=== PATIENT | female | born 1950 | race Caucasian/White ===

== ENCOUNTER 2018-01-21 12:20 | Inpatient (IN) | payer MEDICARE, MEDICAID ==
[2018-01-21] MEDS ORDERED: Furosemide 40 MG/4 ML VIAL IVPUSH SCH ×2 (13:15→14:30)
[2018-01-21] MEDS: Furosemide 40 MG/4 ML VIAL IVPUSH SCH (15:52)
[2018-01-21] MEDS ORDERED: Loperamide 2 MG Cap PO PRN (19:15)
[2018-01-21] MEDS ORDERED: guaiFENesin 100 MG/5 ML Soln 5 ML UD Cup PO PRN (19:15)
[2018-01-21] MEDS ORDERED: Magnesium Hydroxide 400 MG/5 ML Susp 30 ML Cup PO PRN (19:15)
[2018-01-21] MEDS ORDERED: Aluminum Hydroxide/Magnesium Hydroxide/Simethicone Susp 30 ML Cup PO PRN (19:34)
[2018-01-21] MEDS: Carboxymethylcellulose Sodium 0.5% Ophth Soln 15 ML Bottle EYEBOTH SCH (20:08)
[2018-01-21] MEDS: Budesonide 0.5 MG/2 ML Neb Susp INH SCH (20:10)
[2018-01-21] MEDS: Mineral Oil/Petrolatum Ophth Oint 3.5 GM Tube EYERT SCH (20:21)
[2018-01-21] MEDS: Timolol Maleate 0.5% Ophth Soln 5 ML Bottle EYELF SCH (20:21)
[2018-01-21] MEDS: Simvastatin 10 MG Tab PO SCH (20:25)
[2018-01-21] MEDS: Calcium Citrate/Vitamin D3 315 MG-250 Unit Tab PO SCH (20:25)
[2018-01-21] MEDS: Latanoprost 0.005% Ophth Soln 2.5 ML Bottle EYELF SCH (20:29)
[2018-01-21] MEDS: Albuterol/Ipratropium 3.0-0.5 MG/3 ML Neb Soln INH SCH (20:30)
[2018-01-21] MEDS: Dorzolamide 2% Ophth Soln 10 ML Bottle EYELF SCH (20:42)
[2018-01-21] MEDS ORDERED: Calcium Citrate/Vitamin D3 315 MG-250 Unit Tab PO SCH (21:00)
[2018-01-22] MEDS: Furosemide 40 MG/4 ML VIAL IVPUSH SCH ×3 (00:50→20:12)
[2018-01-22] MEDS: Acetaminophen 500 MG Tab PO PRN (01:24)
[2018-01-22] MEDS ORDERED: Budesonide 0.5 MG/2 ML Neb Susp INH SCH (06:00)
[2018-01-22] MEDS: Albuterol/Ipratropium 3.0-0.5 MG/3 ML Neb Soln INH SCH ×3 (06:12→19:58)
[2018-01-22] MEDS: Primidone 250 MG Tab PO SCH ×3 (06:24→16:59)
[2018-01-22 08:19] LABS: CHLORIDE,CL 97 mmol/L (98-115); SODIUM,NA 147 mmol/L (136-145)
[2018-01-22] MEDS: Potassium Chloride 10 MEQ Tab.ER PO SCH (08:27)
[2018-01-22] MEDS: Budesonide 0.5 MG/2 ML Neb Susp INH SCH ×2 (08:27→20:26)
[2018-01-22] MEDS: Cholecalciferol (Vitamin D3) 1,000 Unit Tab PO SCH (08:27)
[2018-01-22] MEDS: Fluticasone Propionate Nasal Spray 16 GM Bottle NASBOTH SCH (08:27)
[2018-01-22] MEDS: Calcium Citrate/Vitamin D3 315 MG-250 Unit Tab PO SCH ×2 (08:27→20:11)
[2018-01-22] MEDS: Carboxymethylcellulose Sodium 0.5% Ophth Soln 15 ML Bottle EYEBOTH SCH ×2 (08:28→19:59)
[2018-01-22] MEDS: Timolol Maleate 0.5% Ophth Soln 5 ML Bottle EYELF SCH ×2 (08:28→20:10)
[2018-01-22] MEDS: Dorzolamide 2% Ophth Soln 10 ML Bottle EYELF SCH ×2 (08:29→20:38)
[2018-01-22] MEDS: Enoxaparin 40 MG/0.4 ML Syringe SUBCUT SCH (12:08)
[2018-01-22] MEDS: Nystatin Topical Powder 15 GM Bottle TOP SCH ×2 (13:55→20:12)
--- NOTE | 2018-01-22 14:38 | PN ---
01/22/2018 PATIENT NAME: OKSANA CHRISTIANSEN FEBRUARY SUBJECTIVE: This is a 67-year-old female patient who was admitted to the hospital from the clinic yesterday with concerns about exacerbation of CHF. The patient had presented to the clinic with shortness of breath and weight gain. The patient's recent brain natriuretic peptide was elevated at 430. Her Lasix had been increased recently to 40 mg twice daily. She continued to have increased shortness of breath, wheezing, weakness, and low oxygen saturations. The patient was recently hospitalized in [facility] back on December 26 through the with community-acquired pneumonia, COPD exacerbation and acute respiratory failure. She was treated with Rocephin, azithromycin, and prednisone. She improved and was returned to the [facility]. The patient today states that her breathing is a little better. She feels a little better. She is still tired. Her breathing is somewhat better. She denies any cough, fever, chills. OBJECTIVE: VITAL SIGNS: Patient's vital signs today, her weight today is 210 pounds, temperature is 98.5, pulse rate is 100, blood pressure is 115/69, respiratory rate is 28, oxygen saturation 91% on 2 L nasal cannula. GENERAL: This is an elderly white obese female in no acute distress. CARDIAC: Heart tones are distant. The patient has probably 5+ pitting edema to her feet and lower extremities. Fingers are also puffy with edema. RESPIRATORY: Lung sounds are clear in upper lobes, diminished at bilateral bases. ABDOMEN: Soft, obese, nontender, nondistended. Bowel sounds present x4. LABORATORY DATA: The patient's lab work that was obtained today, basic metabolic panel shows sodium to be slightly high at 147, chloride slightly low at 97, her bicarb is elevated at 39.4. Troponin was negative. The patient's brain natriuretic peptide that was obtained in the clinic prior to admission was 1190. The patient's EKG that was obtained upon admission showed sinus tachycardia with some premature supraventricular complexes at a rate of 112 beats per minute. IMPRESSION AND PLAN: 1. Exacerbation of congestive heart failure. Plan: We are going to diurese the patient while here in the hospital with Lasix 40 mg IV twice a day. She has a Baez catheter in place. We will continue with accurate I's and Os, daily weights. We will also continue with potassium chloride 10 mEq daily orally. The patient's potassium level today was good at 5.0. We will slowly diurese the patient down. I am expecting probably close to 15 pounds will need to be diuresed just by physical exam alone. 2. Chronic obstructive pulmonary disease. Plan: We will continue with DuoNeb 3 times a day along with Pulmicort nebulizer twice a day. She can have some Robitussin as needed for cough. 3. History of hyperlipidemia. Plan: Continue with Zocor 10 mg daily. 4. Deep venous thrombosis prophylaxis. The patient is bedredden while here. We will try to get her up in the chair, but still she has been in bed sleeping quite a bit. We will start her on some Lovenox 40 mg subcu daily for deep venous thrombosis prophylaxis. 5. History of glaucoma. Plan: Continue with patient's multiple eyedrops for glaucoma. OVERALL PLAN: We are going to try to slowly diurese the patient down. Monitor Is and Os and her weight along with electrolyte balance closely along with respiratory status monitoring. /[id number]/MODL
[2018-01-22] MEDS: Mineral Oil/Petrolatum Ophth Oint 3.5 GM Tube EYERT SCH (20:10)
[2018-01-22] MEDS: Simvastatin 10 MG Tab PO SCH (20:11)
[2018-01-22] MEDS: Latanoprost 0.005% Ophth Soln 2.5 ML Bottle EYELF SCH (20:25)
[2018-01-23] MEDS: Albuterol/Ipratropium 3.0-0.5 MG/3 ML Neb Soln INH SCH ×3 (06:18→18:09)
[2018-01-23] MEDS: Primidone 50 MG Tab PO SCH ×3 (06:30→17:05)
[2018-01-23] MEDS: Budesonide 0.5 MG/2 ML Neb Susp INH SCH ×2 (07:55→20:26)
[2018-01-23] MEDS: Fluticasone Propionate Nasal Spray 16 GM Bottle NASBOTH SCH (08:39)
[2018-01-23] MEDS: Calcium Citrate/Vitamin D3 315 MG-250 Unit Tab PO SCH ×2 (08:39→20:31)
[2018-01-23] MEDS: Furosemide 40 MG/4 ML VIAL IVPUSH SCH ×2 (08:39→20:27)
[2018-01-23] MEDS: Potassium Chloride 10 MEQ Tab.ER PO SCH (08:39)
[2018-01-23] MEDS: Cholecalciferol (Vitamin D3) 1,000 Unit Tab PO SCH (08:40)
[2018-01-23] MEDS: Nystatin Topical Powder 15 GM Bottle TOP SCH ×3 (08:40→20:39)
[2018-01-23] MEDS: Carboxymethylcellulose Sodium 0.5% Ophth Soln 15 ML Bottle EYEBOTH SCH ×2 (08:40→20:30)
[2018-01-23] MEDS: Timolol Maleate 0.5% Ophth Soln 5 ML Bottle EYELF SCH ×2 (08:40→20:25)
[2018-01-23] MEDS: Dorzolamide 2% Ophth Soln 10 ML Bottle EYELF SCH ×2 (08:40→20:35)
[2018-01-23] MEDS: Enoxaparin 40 MG/0.4 ML Syringe SUBCUT SCH (11:54)
--- NOTE | 2018-01-23 13:17 | PN ---
01/23/2018 PATIENT NAME: OKSANA CHRISTIANSEN FEBRUARY SUBJECTIVE: This is a 67-year-old female patient who was seen in the clinic with exacerbation of CHF. The patient was having some shortness of breath and her weight was up quite a bit. She was admitted to the hospital at that time and today, the patient states that she is feeling better. She still sleeps a lot today. She was up in the chair this morning eating breakfast, but she says her breathing is better and she does feel better overall. OBJECTIVE: VITAL SIGNS: Today, the patient's pulse is 105, temperature is 98.6. Her weight today on the bed scale is 211 pounds. Blood pressure is 121/73, respiratory rate is 24, oxygen saturation on 3L nasal cannula is 91% to 94%. GENERAL: This is an elderly white female in no acute distress. She is obese. Seems to sleep a lot. She has no complaints. HEART: Tones are distant. Regular rate and rhythm. No murmurs identified. LUNGS: Sounds are clear in upper lobes, diminished at bilateral bases. ABDOMEN: Obese. Bowel sounds present x4. EXTREMITIES: The patient does have 4+ pitting edema to her feet and ankles. Edema to her fingers seems little improved today from yesterday. LABORATORY DATA: Lab work that was obtained yesterday showed a sodium slightly elevated at 147. Potassium was good at 5.0. We will repeat lab work tomorrow. IMPRESSION AND PLAN: 1. Exacerbation of congestive heart failure. Plan: We are going to continue diuresing the patient. She did have her Baez removed due to leakage, so we are going to try to keep accurate I's and O's. We will continue with Lasix 40 mg IV twice a day. The day before she was minus 625 mL on her I's and O's. Without a Baez catheter in place, we will have to do it more clinically by her weight. Her weight is 211 today on the bed scale. We will have to monitor daily weights closely. We will continue her on potassium chloride 10 mEq daily. Her potassium level yesterday was within normal range at 5.0. We will repeat a basic metabolic panel tomorrow morning. 2. Chronic obstructive pulmonary disease. Plan: Continue with DuoNeb 3 times a day along with Pulmicort nebulizer twice a day. She can have some Robitussin cough syrup as needed for cough. 3. History of hyperlipidemia. Plan: Continue with Zocor 10 mg daily. 4. DVT prophylaxis. The patient is not very active at all. She does get up to the chair now. They got her up today for breakfast. Otherwise, she sleeps most of the day, so I did start her on some Lovenox 40 mg subcu daily for DVT prophylaxis. 5. History of glaucoma. Plan: Continue with multiple eye drops per Optometry for her glaucoma. Overall plan: we are slowly diuresing the patient. We will keep an eye on her weight closely. We will try to do our best on accurate I's and Os. Her electrolytes seeming to be doing well. We will repeat a basic metabolic panel tomorrow morning. We will continue with IV Lasix therapy 40 mg twice a day. /[id number]/MODL MTDD
[2018-01-23] MEDS: Simvastatin 10 MG Tab PO SCH (20:32)
[2018-01-23] MEDS: Latanoprost 0.005% Ophth Soln 2.5 ML Bottle EYELF SCH (20:40)
[2018-01-23] MEDS: Mineral Oil/Petrolatum Ophth Oint 3.5 GM Tube EYERT SCH (20:47)
[2018-01-24] MEDS: Albuterol/Ipratropium 3.0-0.5 MG/3 ML Neb Soln INH SCH ×3 (06:16→20:10)
[2018-01-24] MEDS: Furosemide 40 MG/4 ML VIAL IVPUSH SCH ×2 (06:50→09:32)
[2018-01-24] MEDS: Primidone 50 MG Tab PO SCH ×4 (07:16→17:11)
[2018-01-24] MEDS: Budesonide 0.5 MG/2 ML Neb Susp INH SCH ×2 (07:24→20:40)
[2018-01-24 08:06] LABS: CHLORIDE,CL 97 mmol/L (98-115); SODIUM,NA 139 mmol/L (136-145)
[2018-01-24] MEDS ORDERED: methylPREDNISolone Sodium Succinate 125 MG/2 ML SDV IVPUSH ONE (08:25)
[2018-01-24] MEDS: Cholecalciferol (Vitamin D3) 1,000 Unit Tab PO SCH (09:34)
[2018-01-24] MEDS: Fluticasone Propionate Nasal Spray 16 GM Bottle NASBOTH SCH (09:40)
[2018-01-24] MEDS: Carboxymethylcellulose Sodium 0.5% Ophth Soln 15 ML Bottle EYEBOTH SCH ×2 (09:41→20:29)
[2018-01-24] MEDS: Calcium Citrate/Vitamin D3 315 MG-250 Unit Tab PO SCH ×2 (09:41→20:26)
[2018-01-24] MEDS: Timolol Maleate 0.5% Ophth Soln 5 ML Bottle EYELF SCH ×2 (09:46→20:30)
[2018-01-24] MEDS: Nystatin Topical Powder 15 GM Bottle TOP SCH ×3 (09:46→20:34)
[2018-01-24] MEDS: Dorzolamide 2% Ophth Soln 10 ML Bottle EYELF SCH ×2 (09:50→20:29)
[2018-01-24] MEDS: Potassium Chloride 10 MEQ Tab.ER PO SCH (09:50)
[2018-01-24 10:45] LABS: O2 DELIVERY DEVICE NASAL CANNULA; O2 FLOW RATE 6 L/min
[2018-01-24 10:46] LABS: PCO2 ARTERIAL 89 mmHG (35-45); PO2 ARTERIAL 118 mmHG (80-105)
[2018-01-24 10:47] LABS: BASE EXCESS ARTERIAL 21 mmol/L (-2-3); BICARBONATE,ARTERIAL 46.6 mmol/L (22-26); O2 SATURATION ARTERIAL 98 % (95-98)
[2018-01-24] MEDS: Bumetanide 1 MG/4 ML MDV IVPUSH SCH ×2 (10:51→20:25)
[2018-01-24] MEDS ORDERED: Levofloxacin/Dextrose 5%-Water 100 ML IV SCH (11:30)
[2018-01-24] MEDS: Enoxaparin 40 MG/0.4 ML Syringe SUBCUT SCH (11:43)
--- NOTE | 2018-01-24 12:21 | PN ---
01/24/2018 PATIENT NAME: OKSANA CHRISTIANSEN FEBRUARY SUBJECTIVE: This is a 67-year-old female patient who is a resident at the [facility], here in [place]. She was seen in clinic on Wednesday with concerns about shortness of breath and weight gain. The patient's brain-natriuretic peptide that was obtained in clinic was elevated at 1190. She was admitted to the hospital at that time with exacerbation of CHF. She was put on Lasix 40 mg IV twice a day with accurate I and O and daily weights. The patient was doing well until about 06:00 a.m. this morning. Nursing staff had gone into the patient's room to turn her. They had turned her and they noticed that once they turned her, she became more short of breath, diaphoretic and just did not feel well. She complained of some shortness of breath. On exam today, when I went in, the patient was pale, diaphoretic. She states she felt more short of breath. She has some audible wheezing. She continues to have 4+ pitting edema to her lower extremities. She denied any chest pain or cough. She just stated that she was more short of breath. I gave her 80 mg of Solu-Medrol IV push. She stated that after she got the Solu-Medrol, her breathing did improve. I no longer could hear audible wheezing, her lung sounds had improved slightly. OBJECTIVE: VITAL SIGNS: Today, the patient's weight remains the same. She still weighs 211 pounds per the bed scale. Her temperature is 97.6, pulse is 112 regular, blood pressure is 132/85, respiratory rate is 28, oxygen saturations are anywhere from 86% to 93% on 3L nasal cannula. GENERAL: This is an elderly white female, obese, who is somewhat diaphoretic. She had some audible wheezing until the Solu-Medrol was given. ABDOMEN: Obese, nontender, nondistended. Bowel sounds present x4. LUNGS: Sounds had wheezing throughout lung tellez. HEART: Tones are distant, tachycardic, but regular rate and rhythm otherwise. EXTREMITIES: She does have 4+ pedal edema to her feet and lower extremities. This is improved from previous assessment. Her fingers are less swollen than previous assessment also. LABORATORY DATA: The patient's lab work today, I did obtain a CBC which shows white count within normal range at 8.9, hemoglobin stable at 13.5, ANC is slightly elevated at 77.7. Basic metabolic panel this morning is unremarkable except for her carbon dioxide level is high at 40.0, BUN at 30, creatinine 0.56, GFR is greater than 60. I added a CK-MB, which is negative at 0.50. Troponin is negative at less than 0.04. I repeated brain-natriuretic peptide which is elevated at 1430. EKG that I had obtained this morning shows sinus tachycardia at 110 beats per minute. Chest x-ray shows a new significant infiltrate or mass at the right lung base. IMPRESSION AND PLAN: 1. Exacerbation of congestive heart failure. Plan: The patient's brain- natriuretic peptide is actually elevated from admission today at 1430. We did reinsert Baez catheter again this morning. We are going to try to continue with accurate I's and O's. I am going to continue with Lasix 40 mg IV twice a day. I am going to add Bumex 1 mg IV twice a day. We will continue with daily weights. Also, continue with potassium chloride 10 mEq daily and continue to monitor potassium levels. On assessment she does appear somewhat improved as her edema. 2. Chronic obstructive pulmonary disease/wheezing/ new infiltrate to right lung base: We will continue with DuoNebs three times a day along with her Pulmicort nebulizer twice a day. ABGs show PCO2 at 89, PO2 118, Ph 7.33, Bicarb 49. Also, please see CXR report. I did give the patient Solu-Medrol 80 mg IV this morning, which did improve her wheezing and respiratory status. She complained of less shortness of breath. I am going to put her on Solu-Medrol 40 mg IV twice a day starting tomorrow morning. She can have some Robitussin cough syrup as needed for cough. Start patient on IV antibiotic therapy, Levaquin 500 mg daily and Vancomycin-pharmacy to dose , for new infiltrate. 3. History of hyperlipidemia. Plan: Continue with Zocor 10 mg daily. 4. DVT prophylaxis. I put the patient on Lovenox 40 mg subcutaneously daily for DVT prophylaxis. 5. History of glaucoma. Plan: Continue with multiple eye drops per Optometry for glaucoma. OVERALL PLAN: The patient's brain-natriuretic peptide is actually elevated from admission today at 1430. I did order an EKG this morning with the patient's increased shortness of breath that showed sinus tach at 110 beats per minute. Troponin was negative along with CK-MB was negative. I did start the patient on IV Solu-Medrol, which seemed to improve her respiratory status. ABGs were also obtained. The patient's kidney function remains to be well. I am going to add some extra diuretics of Bumex 1 mg IV twice a day. We have restarted Baez catheter, we will try to keep an accurate I's and O's along with daily weights to monitor the patient's fluid and electrolyte balance closely. At this point, I do believe the patient's shortness of breath was related to COPD, possible hospital acquired pneumonia. IV antibiotic therapy will be initiated for new infiltrate. Will obtain CT of the chest today. /[id number]/MODL MTDD
[2018-01-24] MEDS ORDERED: Levofloxacin/Dextrose 5%-Water 50 ML IV SCH (12:30)
[2018-01-24] MEDS ORDERED: Iopamidol 612 MG/ML 75 ML Bottle IV ONE (15:57)
[2018-01-24] MEDS ORDERED: Sodium Chloride 0.9% 50 ML IV SCH (16:00)
[2018-01-24] MEDS ORDERED: Rivaroxaban 10 MG Tab PO SCH ×2 (16:45→17:00)
[2018-01-24] MEDS ORDERED: Furosemide 40 MG/4 ML VIAL IVPUSH SCH (17:00)
[2018-01-24] MEDS ORDERED: Enoxaparin 60 MG/0.6 ML Syringe SUBCUT ONE (17:02)
[2018-01-24] MEDS: Simvastatin 10 MG Tab PO SCH (20:26)
[2018-01-24] MEDS: Mineral Oil/Petrolatum Ophth Oint 3.5 GM Tube EYERT SCH (20:29)
[2018-01-24] MEDS: Latanoprost 0.005% Ophth Soln 2.5 ML Bottle EYELF SCH (20:30)
[2018-01-25] MEDS: Acetaminophen 500 MG Tab PO PRN (03:19)
[2018-01-25] MEDS: Albuterol/Ipratropium 3.0-0.5 MG/3 ML Neb Soln INH SCH ×3 (06:08→18:17)
[2018-01-25] MEDS: Primidone 50 MG Tab PO SCH ×3 (06:43→17:28)
[2018-01-25] MEDS: Budesonide 0.5 MG/2 ML Neb Susp INH SCH ×2 (07:36→20:05)
[2018-01-25] MEDS: Calcium Citrate/Vitamin D3 315 MG-250 Unit Tab PO SCH ×2 (08:28→20:13)
[2018-01-25] MEDS: Potassium Chloride 10 MEQ Tab.ER PO SCH (08:29)
[2018-01-25] MEDS: Cholecalciferol (Vitamin D3) 1,000 Unit Tab PO SCH (08:29)
[2018-01-25] MEDS: Carboxymethylcellulose Sodium 0.5% Ophth Soln 15 ML Bottle EYEBOTH SCH ×2 (08:30→20:25)
[2018-01-25] MEDS: Timolol Maleate 0.5% Ophth Soln 5 ML Bottle EYELF SCH ×2 (08:31→20:00)
[2018-01-25] MEDS: Dorzolamide 2% Ophth Soln 10 ML Bottle EYELF SCH ×2 (08:32→20:05)
[2018-01-25] MEDS: Nystatin Topical Powder 15 GM Bottle TOP SCH ×3 (08:38→22:00)
[2018-01-25] MEDS: Bumetanide 1 MG/4 ML MDV IVPUSH SCH ×3 (08:38→20:01)
[2018-01-25] MEDS: Fluticasone Propionate Nasal Spray 16 GM Bottle NASBOTH SCH (08:38)
[2018-01-25] MEDS: methylPREDNISolone Sodium Succinate 125 MG/2 ML SDV IVPUSH SCH ×2 (11:25→23:00)
[2018-01-25] MEDS: Enoxaparin 100 MG/1 ML Syringe SUBCUT SCH ×2 (14:51→23:02)
--- NOTE | 2018-01-25 15:32 | PN ---
01/25/2018 PATIENT NAME: OKSANA CHRISTIANSEN FEBRUARY Update, the patient did have a CT chest yesterday, which does demonstrate a moderate pulmonary emboli. Yesterday, the patient was having significant more shortness of breath, diaphoresis, overall not feeling well. Shortly, after they had turned the patient, she did have some audible wheezing, some 4+ pitting edema to her lower extremities, however, she did not have any chest pains or cough. HISTORY: The patient is 67. She is a resident of a local senior living, [facility]. She had been admitted for few days now. She had seen in the clinic approximately 4 days ago with concerns of some shortness of breath, some weight gain. She did have an initial BNP of approximately 1200. She was admitted due to exacerbation of CHF, put on diuretics of Lasix 40 mg b.i.d. She had been diuresing and doing well until about yesterday morning when the staff nurses had noticed that she had become more shortness of breath and diaphoretic upon initial turning. Chest CT does show moderate pleural effusions, right greater than left; however, pulmonary embolism mostly seen on the left, does have some right hilar fullness. EKG yesterday morning does show sinus tach with an inferior lead, T-wave inversion along with V1, V3, V4, V5 and V6 along with reciprocal leads. Lovenox was given. Repeat dose last night. PHYSICAL EXAMINATION: VITAL SIGNS: This morning, the patient is slightly tachycardia about 100 to 106, O2 saturations of 94%. She is on 3 L. Temperature is 97.3. RESPIRATORY: Lung sounds, she does have some anterior late expiratory wheezing. CARDIOVASCULAR: Regular rate and rhythm. No JVD. EXTREMITIES: Lower extremities, generalized edema, slightly pitting. No calf tenderness. Negative Homans signs bilaterally. No discrepancy in calf size. No palpable cord. No redness or erythema. No pain. LABORATORY DATA: White count 8.9, neutrophilia 78%. ABG, pH 7.33, pCO2 89, pO2 118, bicarb high at 46. Sodium 139, potassium 5.0, BUN 30, creatinine 0.57. BNP 1430. Troponin negative. IMPRESSION AND PLAN: 1. Pulmonary embolism. Anticoagulation with low-molecular weight heparin 95 mg subcu daily. Start Coumadin 7.5 mg p.o. daily. Monitor INR. The patient's factor Xa likely contraindicated due to the patient's drug interaction with primidone/PGP inducer. Monitor blood pressure. Monitor heart rate. Repeat EKG, JACQUELINE stockings, ultrasound lower extremities, monitor for any cardiovascular strain. Again, repeat EKG. 2. Chronic obstructive pulmonary disease. We will continue with DuoNeb along with Pulmicort nebulizer. Oxygen saturations adequate. Monitor respiratory rate. We will continue Solu-Medrol for now. 3. Congestive heart failure, acute exacerbation. Weight is down 5 pounds. Strict I and Os. Continue with diuretic therapy. Monitor weight. Monitor I and O. Monitor electrolytes. 4. Pneumonia likely present on admission. Continue with respiratory quinolones. Monitor for sequela as she is also on steroids. We will also continue on Vanco. Incentive spirometer. Head of bed elevation. Oxygen support to maintain saturations approximately 92% to 93%. /[id number]/MODL
[2018-01-25] MEDS: Sodium Chloride 0.9% 5 ML Syringe FLUSH PRN ×2 (20:01→23:01)
[2018-01-25] MEDS: Latanoprost 0.005% Ophth Soln 2.5 ML Bottle EYELF SCH (20:13)
[2018-01-25] MEDS: Simvastatin 10 MG Tab PO SCH (20:14)
[2018-01-25] MEDS ORDERED: Lidocaine 2% 100 MG/5 ML Syringe IVPUSH PRN (20:47)
[2018-01-25] MEDS ORDERED: EPINEPHrine 1:10,000 1 MG/10 ML Syringe IVPUSH PRN (20:47)
[2018-01-25] MEDS ORDERED: Atropine 0.1 MG/ML 10 ML Syringe IVPUSH PRN (20:47)
[2018-01-25] MEDS ORDERED: Nitroglycerin 0.4 MG Tab.SL SL PRN (20:47)
[2018-01-25] MEDS: Albuterol/Ipratropium 3.0-0.5 MG/3 ML Neb Soln INH PRN (21:01)
[2018-01-25] MEDS: Mineral Oil/Petrolatum Ophth Oint 3.5 GM Tube EYERT SCH (21:01)
[2018-01-26] MEDS: Albuterol/Ipratropium 3.0-0.5 MG/3 ML Neb Soln INH PRN (02:05)
[2018-01-26] MEDS: Primidone 50 MG Tab PO SCH ×3 (06:29→16:46)
[2018-01-26] MEDS: Albuterol/Ipratropium 3.0-0.5 MG/3 ML Neb Soln INH SCH ×3 (06:35→18:54)
[2018-01-26] MEDS: Budesonide 0.5 MG/2 ML Neb Susp INH SCH ×2 (07:31→20:01)
[2018-01-26] MEDS: Carboxymethylcellulose Sodium 0.5% Ophth Soln 15 ML Bottle EYEBOTH SCH ×2 (08:51→20:10)
[2018-01-26] MEDS: Enoxaparin 100 MG/1 ML Syringe SUBCUT SCH ×2 (08:52→20:08)
[2018-01-26] MEDS: Fluticasone Propionate Nasal Spray 16 GM Bottle NASBOTH SCH (08:52)
[2018-01-26] MEDS: Bumetanide 1 MG/4 ML MDV IVPUSH SCH (08:53)
[2018-01-26] MEDS: Dorzolamide 2% Ophth Soln 10 ML Bottle EYELF SCH ×2 (08:55→20:14)
[2018-01-26] MEDS: Calcium Citrate/Vitamin D3 315 MG-250 Unit Tab PO SCH ×2 (08:56→20:06)
[2018-01-26] MEDS: Cholecalciferol (Vitamin D3) 1,000 Unit Tab PO SCH (08:57)
[2018-01-26] MEDS: Potassium Chloride 10 MEQ Tab.ER PO SCH (08:57)
[2018-01-26] MEDS: Timolol Maleate 0.5% Ophth Soln 5 ML Bottle EYELF SCH ×2 (09:01→20:05)
[2018-01-26] MEDS: Nystatin Topical Powder 15 GM Bottle TOP SCH ×3 (09:30→20:21)
[2018-01-26] MEDS: predniSONE 20 MG Tab PO SCH (11:08)
[2018-01-26 15:31] LABS: CHLORIDE,CL 90; SODIUM,NA 135
--- NOTE | 2018-01-26 16:05 | PN ---
01/26/2018 PATIENT NAME: OKSANA CHRISTIANSEN FEBRUARY CHIEF COMPLAINT: Does feel better slightly. Remains tachycardic. Denies any cough. Denies any chest pain. One of the nurses did report last night that they were inverted P waves, however, review of telemetry strips could not identify any inverted P-waves. BRIEF HISTORY: This patient is 67 years old. She is a resident of a long-term care center. She was admitted for some shortness of breath and some weight gain with elevated BNP. Initially started on some diuretics. She had been on the Lasix 40 mg b.i.d. She was started on Bumex 1 mg IV b.i.d. The patient did have a pulmonary embolism likely while in the hospital. Chest CT did show moderate pleural effusions, right greater than left; however, PE mostly seen on her left with a right hilar fullness. This has set her back into her hospital stay when she became quite tachycardic, diaphoresis, have increased the oxygen needs. She was started on increased doses of Lovenox, and yesterday, I had started her on Coumadin 7 mg, subtherapeutic INR. We are bridging her at this time. Lower extremities with Bjorn bandages. She remains on telemetry. ECG does show likely cardiac strain with some inverted T-waves in many of her inferior and posterolateral leads, however, she denies any shortness of breath. She does have history of COPD. Oxygen saturations last night did increase slightly, however, she was 98% this morning on 5 L, hopefully we can reduce that down. Her wheezing is improving. She had been on steroids, IV Solu-Medrol b.i.d., this will be reduced down and changed to oral. PHYSICAL EXAMINATION: GENERAL: This morning, the patient is alert and oriented, she is in no acute distress, however. She is bedridden with Pickwickian-type body habitus, so she has poor pulmonary function. She is slightly tachypneic this morning. VITAL SIGNS: Respiratory rate is 24; heart rate is around 100 to 104, that has been like that she has been in; blood pressure 120/72; afebrile; temperature 98; O2 sats again 98% on 8 L, hopefully we can reduce this down. LUNGS: Slight inspiratory wheeze. No crackles or rales. This is an improvement. CV: Regular rate and rhythm. No S3 sounds. Slightly muffled. ABDOMEN: She does have some negative CVA tenderness. EXTREMITIES: She does have some generalized pitting edema to her lower extremities. Negative Homans sign. No erythema to her legs. No palpable cord noted. LABORATORY DATA: White count 7.5, hemoglobin and hematocrit are 13.0 and 40.2 respectively. Subtherapeutic INR at 1.0. She did have an ABG on 01/24/2018 that showed pH of 7.3 with a CO2 of 89. BNP on admission was 1430, this morning it was 1060. Potassium 5.0, creatinine 1.39. BUN and creatinine ratio is high, however, improving. She does have a Baez catheter in, diuresing well, slightly over-diuresed, although she has gained a couple of pounds. I doubt this is fluid overload. Intake and output past 24 hours is 720 in and 1025 out with a negative 300. IMPRESSION AND PLAN: 1. Pulmonary embolism. She is on anticoagulation with 7 mg daily of Coumadin along with b.i.d. weight-based [id number] heparin. The patient is a Factor Xa, contraindicated due to the patient on primidone/PgP inducer. We will monitor her blood pressure. Bjorn bandage to her lower extremities. We will forego any ultrasound of the lower extremities. Repeat EKG in the morning. Likely, she could complete her bridging therapy at the [facility]. 2. Chronic obstructive pulmonary disease. She is on DuoNeb with Pulmicort nebulizer. She is now oxygenating better, less wheezing, decrease Solu- Medrol to 40 daily, change it to oral. 3. Congestive heart failure with an acute exacerbation on admission. Continue to diurese. We will pull the Baez catheter. Electrolytes are normal. I feel she is slightly over-diuresed, however, improving BUN and creatinine ratio. This may be why she is slightly tachycardic. 4. Pneumonia, likely present on admission. She had been on antibiotics, we will discontinue this. Her white count is normal. Reducing neutrophilia. Afebrile. No sputum production. Overall Plan Today: Reduce steroids, change to oral, Bjorn bandage to lower extremities, remove Baez catheter, hold diuretic therapy for now. Slightly over-diuresed. Continue with anticoagulation and bridging therapy. Monitor INR. Monitor for any hemodynamic instability or any chest pain. Monitor blood pressure carefully. I will repeat EKG in the morning. Attempt to reduce oxygen saturations between 92% and 95%. I think she needs less oxygen at this time. /[id number]/MODL
[2018-01-26] MEDS: Simvastatin 10 MG Tab PO SCH (20:06)
[2018-01-26] MEDS: Latanoprost 0.005% Ophth Soln 2.5 ML Bottle EYELF SCH (20:07)
[2018-01-26] MEDS: Mineral Oil/Petrolatum Ophth Oint 3.5 GM Tube EYERT SCH (20:19)
[2018-01-27] MEDS: Albuterol/Ipratropium 3.0-0.5 MG/3 ML Neb Soln INH SCH (06:05)
[2018-01-27] MEDS: Primidone 50 MG Tab PO SCH (06:45)
[2018-01-27] MEDS: Budesonide 0.5 MG/2 ML Neb Susp INH SCH (07:31)
[2018-01-27] MEDS: Cholecalciferol (Vitamin D3) 1,000 Unit Tab PO SCH (08:14)
[2018-01-27] MEDS: Dorzolamide 2% Ophth Soln 10 ML Bottle EYELF SCH (08:15)
[2018-01-27] MEDS: Carboxymethylcellulose Sodium 0.5% Ophth Soln 15 ML Bottle EYEBOTH SCH (08:15)
[2018-01-27] MEDS: Timolol Maleate 0.5% Ophth Soln 5 ML Bottle EYELF SCH (08:15)
[2018-01-27] MEDS: Enoxaparin 100 MG/1 ML Syringe SUBCUT SCH (08:16)
[2018-01-27] MEDS: Nystatin Topical Powder 15 GM Bottle TOP SCH (08:16)
[2018-01-27] MEDS: Fluticasone Propionate Nasal Spray 16 GM Bottle NASBOTH SCH (08:17)
[2018-01-27] MEDS: Potassium Chloride 10 MEQ Tab.ER PO SCH (08:17)
[2018-01-27] MEDS: predniSONE 20 MG Tab PO SCH (08:18)
[2018-01-27] MEDS: Calcium Citrate/Vitamin D3 315 MG-250 Unit Tab PO SCH (08:18)
[2018-01-27] MEDS ORDERED: Furosemide 40 MG Tab PO SCH (09:00)
[2018-01-27] MEDS ORDERED: Calcium Carbonate 500 MG Tab.Chew PO SCH (11:00)
--- NOTE | 2018-01-28 12:04 | DISCH ---
FINAL DIAGNOSES: Pulmonary embolism, stable; chronic obstructive pulmonary disease, stable; and exacerbation of congestive heart failure, acute on chronic, improved. HISTORY: This 67-year-old female, who is a resident of a long-term care center. She was [facility] to admission with concerns of shortness of breath and weight gain. She had initial BNP at the clinic of 1190, which was acutely elevated around 1400 while in the hospital. She was admitted due to exacerbation of CHF. She was placed on IV diuretic therapy with I's and O's and daily weights. She is doing well until January 24 when the nursing staff had noticed after turning her then she became more shortness of breath, diaphoretic, and just did not feel well, and she had significant increase in her oxygen requirements. At that time, 80 mg of Solu-Medrol was given. EKG was obtained, shows sinus tach. Troponins were negative. ABGs were obtained, which showed pH 7.33, pCO2 of 89, pO2 of 118, this was on 6 L nasal cannula oxygen. She was initially placed on IV antibiotic therapy of vancomycin, Levaquin 500 for what appeared to be a new infiltrate. She has been on DVT prophylaxis 40 mg subcu daily. BNP was reobtained, which showed increasing BNP of 1430. Bumex was added to her diuretic therapy of 1 mg IV twice a day. Baez catheter was placed and a subsequent CT was obtained which showed the patient to have pulmonary embolism, moderate. She was placed on distal doses of bji-vibkgnrip-selqkp heparin that day. The following day, she was placed on bridging therapy. Continued Lovenox, increasing dosages along with Coumadin 7.5 mg per day. ONGOING HOSPITAL COURSE: The patient has never had any chest pain. Her vital signs were monitored. She did have tachycardia upon early admission, she remains around 100 to 104 heart rate, however, no chest pain. She does have some mild audible late expiratory wheezing, however, this is mild. Bjorn bandages about 6 inch wrap, spiral wraps on the lower extremities. IV antibiotics were eventually discontinued. EKG did show some ischemia in inferior and posterolateral leads, however, no chest pain. Oxygen requirements were slowly titrated down. She will still require 2 to 4 L/minute to keep oxygen saturations between 92% to 94%. Vital signs and physical exam on discharge; heart rate 102. The patient is alert, oriented. She states she feels better. Lungs; slight inspiratory wheezing. Pulmicort and DuoNeb were continuing. CV; regular rate and rhythm, slightly muffled. Does have some 3+ pitting edema in the lower extremities. No palpable cord. No redness in her lower extremities. White count 7.5, hemoglobin 13.0, and hematocrit 40. INR 1.2. Sodium 135, potassium 5.2, BUN 26, creatinine 0.63, GFR greater than 60, glucose 135, and calcium 8.9. BNP; reducing on discharge 1060. She had a Baez catheter. This was discontinued. She did have 160 mL post residual, post catheter, however, this is likely due to bladder atony and position. Steroids were decreased. She will be off systemic steroids upon discharge. She can continue with Pulmicort. Subsequent chest x-rays did show significant infiltrate or mass at the right lung base. This will have to be followed up. MEDICATION ADJUSTMENTS CHANGES ON DISCHARGE: Coumadin 7.5 mg p.o. daily until therapeutic INR between 2 and 2.5, Lovenox/bur-worsoavwh-jvkpwt heparin 95 mg x1 dose tonight and then 140 mg daily until the patient's INR is subtherapeutic. She can continue with Pulmicort. DISPOSITION: The patient will be discharged back to long-term care. Close followup and monitoring will be required. She has oxygen requirements at this time. The patient is hemodynamically stable, although her heart rate is around 100 and 102. She is afebrile, normal white count. Vital signs are stable. She has no chest pain. She has no worsening increase in shortness of breath. She feels like she could be ready for discharge. She is to report any chest pain, worsening shortness of breath, or any altered level of consciousness. 6 inch Bjorn bandages in the lower extremity, spiral wrap starting from the toes up to the thigh. INR Clinic will be notified. Consider repeat chest x-ray upon followup. /[id number]/MODL
== END 2018-01-27 11:40 | DRG 175 ==
LOC: KA.MS 12:20
PROVIDERS: ADMIT Nurse Practitioner Family; ATTEND Family Medicine
DX: I26.99 Other pulmonary embolism without acute cor pulmonale (principal); J18.9 Pneumonia, unspecified organism; J44.0 Chronic obstructive pulmonary disease with (acute) lower respiratory infection; I50.9 Heart failure, unspecified; E78.5 Hyperlipidemia, unspecified; F70 Mild intellectual disabilities; Z79.899 Other long term (current) drug therapy
CPT/HCPCS: 36415; 36600; 51702; 51798; 71045; 71260; 80048; 82553; 82803; 83880; 84484; 85025; 85610; 93005; 94640; A9270-GY; J1650; J1940; J1956; J2930; J3370; J7030; J7050; Q9967; S0171

== ENCOUNTER 2018-01-27 13:02 | Inpatient (IN) | payer MEDICARE, MEDICAID ==
[2018-01-27] MEDS ORDERED: Furosemide 40 MG/4 ML VIAL IVPUSH ONE (13:16)
--- NOTE | 2018-01-27 13:46 | EDM.PDOC ---
ED HPI GENERAL MEDICAL PROBLEM - General Chief Complaint: Respiratory Problem Stated Complaint: SOB Time Seen by Provider: 01/27/18 13:02 Source of Information: Reports: EMS, Old Records - History of Present Illness INITIAL COMMENTS - FREE TEXT/NARRATIVE: 67 YO WF with PMH of recent CHF exacerbation, new pulmonary emboli and large pleural effusion who is DNR/DNI and was sent back to [place] today. According to nurse at [place] patient began to have more labored breathing. [place] spoke with family who requested transfer back to hospital. Upon arrival, pt was on 10L of O2 with SaO2 of 83%. Pt was placed on a NRB @15L and transitioned to Bipap. Currently pt SaO2 on Bipap on 10L is 93%. Pt response to voice but with indiscernible speech. Family has been notified of her condition and case has been discussed with Ritchie REYES who will assume care after ER evaluation. Pt is edematous and appears to be in CHF with anasarca. Onset: Unknown/Unsure Duration: Getting Worse Location: Reports: Generalized Severity: Severe Improves with: Reports: None Worsens with: Reports: Movement Associated Symptoms: Reports: Shortness of Breath. Denies: Fever/Chills, Nausea /Vomiting Treatments CATEGORY ANALYST: Reports: Oxygen - Related Data Allergies Allergy/AdvReac Type Severity Reaction Status Date / Time No Known Drug Allergies Allergy Cannot Verified 01/21/18 12:54 Remember Home Meds: Home Meds Acetaminophen [Tylenol Extra Strength] 1,000 mg PO Q6HR PRN 01/21/18 [History] Albuterol/Ipratropium [DuoNeb 3.0-0.5 MG/3 ML] 3 ml INH Q4HR PRN 01/21/18 [ History] Albuterol/Ipratropium [DuoNeb 3.0-0.5 MG/3 ML] 3 ml INH TID 01/21/18 [History] Budesonide [Pulmicort] 0.5 mg INH BID@0600,1900 01/21/18 [History] Calcium Carbonate [Calcium] 500 mg PO TH@1100,1700 01/21/18 [History] Calcium Carbonate/Vitamin D3 [Calcium 600-Vit D3 400 Tablet] 1 tab PO BID [History] Cholecalciferol (Vitamin D3) [Vitamin D3] 1,000 units PO DAILY 01/21/18 [History ] Dorzolamide [Trusopt 2% Ophth Soln] 1 drop EYELF BID 01/21/18 [History] Furosemide [Lasix] 40 mg PO BID 01/21/18 [History] Latanoprost [Xalatan 0.005% Ophth Soln] 1 drop EYELF BEDTIME 01/21/18 [History] Loperamide [Imodium] 2 mg PO ASDIRECTED PRN 01/21/18 [History] Mag Hydrox/Al Hydrox/Simeth [Mi Acid Suspension] 30 ml PO Q4HR PRN 01/21/18 [ History] Magnesium Hydroxide [Milk of Magnesia] 30 ml PO DAILY PRN 01/21/18 [History] Mineral Oil/Petrolatum,White [Lubrifresh Pm Eye Ointment] 1 applic EYERT BEDTIME 01/21/18 [History] Mometasone Furoate [Nasonex] 2 spray NASBOTH DAILY 01/21/18 [History] Potassium Chloride [Klor-Con 10] 10 meq PO DAILY 01/21/18 [History] Primidone 250 mg PO TID@0700,1100,1700 01/21/18 [History] Propylene Glycol/Peg 400 [Systane Liquid Gel Eye Drops] 1 drop EYEBOTH BID 01/21 [History] Simvastatin [Zocor] 10 mg PO BEDTIME 01/21/18 [History] Timolol Maleate [Timoptic 0.5% Ophth Soln] 1 drop EYELF BID 01/21/18 [History] guaiFENesin 10 ml PO Q4HR PRN 01/21/18 [History] Enoxaparin Sodium [Lovenox] 140 mg SQ DAILY #4 ml 01/27/18 [Rx] Warfarin Sodium [Coumadin] 7.5 mg PO DAILY #5 tablet 01/27/18 [Rx] Past Medical History HEENT History: Reports: Cataract, Glaucoma, Impaired Vision, Otitis Media Cardiovascular History: Reports: Heart Failure Respiratory History: Reports: COPD, Other (See Below) Other Respiratory History: hosp for community acquired pneumonia and acute resp failure 12/26-01/06/18 Gastrointestinal History: Reports: Cholelithiasis, GERD Genitourinary History: Reports: Urinary Incontinence Musculoskeletal History: Reports: Osteoporosis 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 Psychiatric History: Reports: Other (See Below) Other Psychiatric History: mild intellectual disability, memory loss Endocrine/Metabolic History: Reports: Hypothyroidism - Infectious Disease History Infectious Disease History: Reports: Other (See Below) Other Infectious Disease History: unknown - Past Surgical History HEENT Surgical History: Reports: Cataract Surgery, Eye Surgery Cardiovascular Surgical History: Reports: None Respiratory Surgical History: Reports: None GI Surgical History: Reports: Cholecystectomy, Colonoscopy Female Surgical History: Reports: None Endocrine Surgical History: Reports: None Neurological Surgical History: Reports: Other (See Below) Other Neurological Surgeries/Procedures: cervical spine surgery Musculoskeletal Surgical History: Reports: Other (See Below) Other Musculoskeletal Surgeries/Procedures:: Cervical spine surg Social & Family History - Family History Family Medical History: Noncontributory - Caffeine Use Caffeine Use: Reports: Coffee ED ROS GENERAL - Review of Systems Review Of Systems: ROS reveals no pertinent complaints other than HPI. Constitutional: Reports: No Symptoms HEENT: Reports: No Symptoms Respiratory: Reports: Shortness of Breath Cardiovascular: Reports: Dyspnea on Exertion, Edema Endocrine: Reports: No Symptoms GI/Abdominal: Reports: No Symptoms : Reports: No Symptoms Musculoskeletal: Reports: No Symptoms Skin: Reports: No Symptoms Neurological: Reports: No Symptoms Psychiatric: Reports: No Symptoms Hematologic/Lymphatic: Reports: No Symptoms Immunologic: Reports: No Symptoms ED EXAM, GENERAL - Physical Exam Exam: See Below Exam Limited By: Respiratory Distress General Appearance: Moderate Distress Eye Exam: Bilateral Eye: PERRL Throat/Mouth: Normal Inspection, Normal Lips, Normal Teeth, Normal Gums, Normal Oropharynx, Normal Voice, No Airway Compromise Head: Atraumatic, Normocephalic Neck: Normal Inspection, Supple, Non-Tender, Full Range of Motion Respiratory/Chest: Respiratory Distress, Decreased Breath Sounds, Crackles, Accessory Muscle Use, Splinting Cardiovascular: Regular Rate, Rhythm, Tachycardia. No: No Edema GI/Abdominal: Normal Bowel Sounds, Soft, Non-Tender, No Organomegaly, No Distention, No Abnormal Bruit, No Mass Back Exam: Normal Inspection, Full Range of Motion, NT Extremities: Pedal Edema Neurological: Alert, Slow to Respond Skin Exam: Warm, Dry, Intact, Normal Color, No Rash Lymphatic: No Adenopathy EKG INTERPRETATION EKG Date: 01/27/18 Time: 13:49 Rhythm: NSR Rate (Beats/Min): 104 [place]: Normal P-Wave: Present QRS: Normal ST-T: Normal QT: Normal Course - Vital Signs Last Recorded V/S: Last Vital Signs Temp 36.2 C 01/27/18 15:30 Pulse 96 01/27/18 15:30 Resp 24 H 01/27/18 15:30 BP 105/50 L 01/27/18 15:30 Pulse Ox 91 L 01/27/18 16:04 - Orders/Labs/Meds Orders: Active Orders 24 hr Category Date Time Status BIPAP Adult [RT BiPAP/CPAP] [] ASDIRECTED Care 01/27/18 13:16 Active EKG Documentation Completion [] ASDIRECTED Care 01/27/18 13:20 Inactive Chest 1V Frontal [CR] Stat Exams 01/27/18 13:10 Taken EKG 12 Lead [EK] Routine Ther 01/27/18 13:20 Stop Req Medication Orders Atropine Sulfate (Atropine 0.1 Mg/Ml) 0 mg IVPUSH ASDIRECTED PRN PRN Reason: Heart Epinephrine HCl (Epinephrine 1:10,000) 1 mg IVPUSH ASDIRECTED PRN PRN Reason: Heart Lidocaine HCl (Xylocaine 2%) 0 mg IVPUSH ASDIRECTED PRN PRN Reason: Heart Nitroglycerin (Nitrostat) 0.4 mg SL ASDIRECTED PRN PRN Reason: Heart Sodium Chloride (Syrex Flush) 5 ml FLUSH Q8HR PRN PRN Reason: Keep Vein Open Labs: Laboratory Tests 01/27/18 01/27/18 01/27/18 Range/Units 14:40 14:40 14:40 WBC 8.6 (5.0-10.0) 10^3/uL RBC 4.42 (3.80-5.50) 10^6/uL Hgb 13.8 (12.0-16.0) g/dL Hct 41.6 (37.0-47.0) % MCV 94.1 H (82.0-92.0) fL MCH 31.2 H (27.0-31.0) pg MCHC 33.2 (32.0-36.0) g/dL RDW 13.2 (11.5-14.5) % Plt Count 154 (150-300) 10^3/uL MPV 9.0 (7.4-10.4) fL Neut % (Auto) 88.5 H (50.0-70.0) % Lymph % (Auto) 6.3 L (20.0-40.0) % [place] % (Auto) 4.0 (2.0-8.0) % Eos % (Auto) 1.1 (1.0-3.0) % Baso % (Auto) 0.1 (0.0-1.0) % Neut # (Auto) 7.7 H (2.5-7.0) 10^3/uL Lymph # (Auto) 0.5 L (1.0-4.0) 10^3/uL [place] # (Auto) 0.3 (0.1-0.8) 10^3/uL Eos # (Auto) 0.1 (0.1-0.3) 10^3/uL Baso # (Auto) 0.0 (0.0-0.1) 10^3/uL PT 13.7 H D (8.9-11.4) SEC INR 1.4 H (0.9-1.1) APTT 42.7 H (20.8-31.2) SEC ABG pH (7.35-7.45) ABG pCO2 (35-45) mmHG ABG pO2 (80-105) mmHG ABG HCO3 (22-26) mmol/L ABG Total CO2 (23-27) mmol/L ABG O2 Saturation (95-98) % ABG Base Excess (-2-3) mmol/L Oxygen Flow Rate L/min Blood Gas Comments Sodium 135 L (136-145) mmol/L Potassium 5.5 H (3.3-5.3) mmol/L Chloride 93 L (98-115) mmol/L Carbon Dioxide 41.5 H (21.0-32.0) mmol/L BUN 30 H (6-25) mg/dL Creatinine 0.60 (0.51-1.17) mg/dL Est Cr Clr Drug Dosing TNP Estimated GFR (MDRD) > 60 mL/min Glucose 168 H (70-110) mg/dL Calcium 9.3 (8.7-10.3) mg/dL Total Bilirubin 0.2 (0.2-1.0) mg/dL AST 53 H (15-37) U/L ALT 55 (12-78) U/L Alkaline Phosphatase 123 H (46-116) IU/L Creatine Kinase 30 (26-276) U/L CK-MB (CK-2) 1.10 (0.00-4.30) ng/mL Troponin I 0.05 (0.00-0.070) ng/mL B-Natriuretic Peptide 1030 H (0-100) pg/mL Total Protein 6.8 (6.4-8.2) g/dL Albumin 2.59 L (3.00-4.80) g/dL 01/27/18 Range/Units 14:45 WBC (5.0-10.0) 10^3/uL RBC (3.80-5.50) 10^6/uL Hgb (12.0-16.0) g/dL Hct (37.0-47.0) % MCV (82.0-92.0) fL MCH (27.0-31.0) pg MCHC (32.0-36.0) g/dL RDW (11.5-14.5) % Plt Count (150-300) 10^3/uL MPV (7.4-10.4) fL Neut % (Auto) (50.0-70.0) % Lymph % (Auto) (20.0-40.0) % [place] % (Auto) (2.0-8.0) % Eos % (Auto) (1.0-3.0) % Baso % (Auto) (0.0-1.0) % Neut # (Auto) (2.5-7.0) 10^3/uL Lymph # (Auto) (1.0-4.0) 10^3/uL [place] # (Auto) (0.1-0.8) 10^3/uL Eos # (Auto) (0.1-0.3) 10^3/uL Baso # (Auto) (0.0-0.1) 10^3/uL PT (8.9-11.4) SEC INR (0.9-1.1) APTT (20.8-31.2) SEC ABG pH 7.37 (7.35-7.45) ABG pCO2 81 H* (35-45) mmHG ABG pO2 39 L* (80-105) mmHG ABG HCO3 46.9 H (22-26) mmol/L ABG Total CO2 49 H (23-27) mmol/L ABG O2 Saturation 68 L (95-98) % ABG Base Excess 22 H (-2-3) mmol/L Oxygen Flow Rate 2 L/min Blood Gas Comments See note Sodium (136-145) mmol/L Potassium (3.3-5.3) mmol/L Chloride (98-115) mmol/L Carbon Dioxide (21.0-32.0) mmol/L BUN (6-25) mg/dL Creatinine (0.51-1.17) mg/dL Est Cr Clr Drug Dosing Estimated GFR (MDRD) mL/min Glucose (70-110) mg/dL Calcium (8.7-10.3) mg/dL Total Bilirubin (0.2-1.0) mg/dL AST (15-37) U/L ALT (12-78) U/L Alkaline Phosphatase (46-116) IU/L Creatine Kinase (26-276) U/L CK-MB (CK-2) (0.00-4.30) ng/mL Troponin I (0.00-0.070) ng/mL B-Natriuretic Peptide (0-100) pg/mL Total Protein (6.4-8.2) g/dL Albumin (3.00-4.80) g/dL Meds: Medications Generic Name Dose Route Start Last Admin Trade Name Freq PRN Reason Stop Dose Admin Atropine Sulfate 0 mg 01/27/18 15:16 Atropine 0.1 Mg/Ml IVPUSH ASDIRECTED PRN Heart Epinephrine HCl 1 mg 01/27/18 15:16 Epinephrine 1:10,000 IVPUSH ASDIRECTED PRN Heart Lidocaine HCl 0 mg 01/27/18 15:16 Xylocaine 2% IVPUSH ASDIRECTED PRN Heart Nitroglycerin 0.4 mg 01/27/18 15:16 Nitrostat SL ASDIRECTED PRN Heart Sodium Chloride 5 ml 01/27/18 14:56 Syrex Flush FLUSH Q8HR PRN Keep Vein Open Discontinued Medications Generic Name Dose Route Start Last Admin Trade Name Freq PRN Reason Stop Dose Admin Furosemide 40 mg 01/27/18 13:16 01/27/18 16:26 Lasix IVPUSH 01/27/18 13:17 40 mg NOW ONE Administration - Radiology Interpretation Free Text/Narrative:: CXR- Congestive heart failure Departure - Departure Time of Disposition: 15:04 Disposition: Admitted As Inpatient 67 Condition: Critical Clinical Impression: Respiratory distress Congestive heart failure Qualifiers: Heart failure chronicity: acute on chronic - Discharge Information - My Orders Last 24 Hours: My Active Orders 01/27/18 13:10 Chest 1V Frontal [CR] Stat 01/27/18 13:16 BIPAP Adult [RT BiPAP/CPAP] [RC] ASDIRECTED 01/27/18 13:20 EKG Documentation Completion [RC] ASDIRECTED EKG 12 Lead [EK] Routine - Assessment/Plan Last 24 Hours: My Active Orders 01/27/18 13:10 Chest 1V Frontal [CR] Stat 01/27/18 13:16 BIPAP Adult [RT BiPAP/CPAP] [RC] ASDIRECTED 01/27/18 13:20 EKG Documentation Completion [RC] ASDIRECTED EKG 12 Lead [EK] Routine Assessment:: 1. CHF exacerbation Plan: 1. Admit- Ritchie Yates 2. lasix 40mg IV BID 3. continue bipap 4. supportive care 5. DNR/DNI 6. comfort care
[2018-01-27 14:56] LABS: O2 FLOW RATE 2 L/min
[2018-01-27 15:02] LABS: PCO2 ARTERIAL 81 mmHG (35-45)
[2018-01-27 15:03] LABS: BASE EXCESS ARTERIAL 22 mmol/L (-2-3); BICARBONATE,ARTERIAL 46.9 mmol/L (22-26); O2 SATURATION ARTERIAL 68 % (95-98); PO2 ARTERIAL 39 mmHG (80-105)
[2018-01-27 15:15] LABS: CHLORIDE,CL 93 mmol/L (98-115); SODIUM,NA 135 mmol/L (136-145)
[2018-01-27] MEDS ORDERED: EPINEPHrine 1:10,000 1 MG/10 ML Syringe IVPUSH PRN (15:16)
[2018-01-27] MEDS ORDERED: Atropine 0.1 MG/ML 10 ML Syringe IVPUSH PRN (15:16)
[2018-01-27] MEDS ORDERED: Lidocaine 2% 100 MG/5 ML Syringe IVPUSH PRN (15:16)
[2018-01-27] MEDS ORDERED: Nitroglycerin 0.4 MG Tab.SL SL PRN (15:16)
[2018-01-27] MEDS ORDERED: Magnesium Hydroxide 400 MG/5 ML Susp 30 ML Cup PO PRN (17:44)
[2018-01-27] MEDS ORDERED: Albuterol/Ipratropium 3.0-0.5 MG/3 ML Neb Soln INH PRN (17:44)
[2018-01-27] MEDS ORDERED: Acetaminophen 500 MG Tab PO PRN (17:44)
[2018-01-27] MEDS ORDERED: Loperamide 2 MG Cap PO PRN (17:44)
[2018-01-27] MEDS ORDERED: guaiFENesin 100 MG/5 ML Soln 5 ML UD Cup PO PRN (17:44)
[2018-01-27] MEDS ORDERED: Aluminum Hydroxide/Magnesium Hydroxide/Simethicone Susp 30 ML Cup PO PRN (17:56)
[2018-01-27] MEDS ORDERED: Warfarin 2.5 MG Tab PO SCH (18:00)
[2018-01-27] MEDS: Budesonide 0.5 MG/2 ML Neb Susp INH SCH (18:27)
[2018-01-27] MEDS: Albuterol/Ipratropium 3.0-0.5 MG/3 ML Neb Soln INH SCH (20:20)
[2018-01-27] MEDS ORDERED: Dorzolamide 2% Ophth Soln 10 ML Bottle EYELF SCH (21:00)
[2018-01-27] MEDS ORDERED: Enoxaparin 100 MG/1 ML Syringe SUBCUT ONE (21:00)
[2018-01-27] MEDS ORDERED: Lanolin/Mineral Oil/Petrolatum Ophth Oint 3.5 GM Tube EYERT SCH (21:00)
[2018-01-27] MEDS ORDERED: Latanoprost 0.005% Ophth Soln 2.5 ML Bottle EYELF SCH (21:00)
[2018-01-27] MEDS ORDERED: Timolol Maleate 0.5% Ophth Soln 5 ML Bottle EYELF SCH (21:00)
[2018-01-28] MEDS: Albuterol/Ipratropium 3.0-0.5 MG/3 ML Neb Soln INH SCH ×3 (06:08→19:04)
[2018-01-28] MEDS: Primidone 250 MG Tab PO SCH ×2 (06:28→10:54)
[2018-01-28] MEDS: Budesonide 0.5 MG/2 ML Neb Susp INH SCH ×2 (06:53→18:37)
[2018-01-28 08:08] LABS: O2 DELIVERY DEVICE BIPAP; O2 FLOW RATE 4 L/min
[2018-01-28 08:17] LABS: PCO2 ARTERIAL 66 mmHG (35-45)
[2018-01-28 08:18] LABS: BASE EXCESS ARTERIAL 28 mmol/L (-2-3); BICARBONATE,ARTERIAL 51.1 mmol/L (22-26); O2 SATURATION ARTERIAL 83 % (95-98); PO2 ARTERIAL 46 mmHG (80-105)
[2018-01-28 08:22] LABS: CHLORIDE,CL 94 mmol/L (98-115); SODIUM,NA 137 mmol/L (136-145)
[2018-01-28] MEDS ORDERED: ARTIFICIAL TEARS EYERT SCH (08:40)
[2018-01-28] MEDS ORDERED: TIMOLOL MALEATE 0.5% EYELF SCH (08:44)
[2018-01-28] MEDS: DORZOLAMIDE 2% EYELF SCH ×2 (09:25→20:34)
[2018-01-28] MEDS: Potassium Chloride 10 MEQ Tab.ER PO SCH (09:29)
[2018-01-28] MEDS: Furosemide 40 MG Tab PO SCH ×2 (09:30→20:37)
[2018-01-28] MEDS: TIMOLOL MALEATE 0.5% EYELF SCH ×2 (09:33→20:36)
[2018-01-28] MEDS: SYSTANE EYE EYEBOTH SCH ×2 (09:35→20:37)
[2018-01-28] MEDS: Enoxaparin 150 MG/1 ML Syringe SUBCUT SCH (09:42)
[2018-01-28] MEDS: Fluticasone Propionate Nasal Spray 16 GM Bottle NASBOTH SCH (09:44)
--- NOTE | 2018-01-28 09:46 | PCM.HP ---
H&P History of Present Illness - General Date of Service: 01/28/18 Admit Problem/Dx: Admission Diagnosis/Problem Admission Diagnosis/Problem Congestive heart failure Source of Information: Family, Old Records, Provider, RN - Related Data Allergies/Adverse Reactions: Allergies Allergy/AdvReac Type Severity Reaction Status Date / Time No Known Drug Allergies Allergy Cannot Verified 01/21/18 12:54 Remember Home Medications: Home Meds Acetaminophen [Tylenol Extra Strength] 1,000 mg PO Q6HR PRN 01/21/18 [History] Albuterol/Ipratropium [DuoNeb 3.0-0.5 MG/3 ML] 3 ml INH Q4HR PRN 01/21/18 [ History] Albuterol/Ipratropium [DuoNeb 3.0-0.5 MG/3 ML] 3 ml INH TID 01/21/18 [History] Budesonide [Pulmicort] 0.5 mg INH BID@0600,1900 01/21/18 [History] Calcium Carbonate [Calcium] 500 mg PO TH@1100,1700 01/21/18 [History] Calcium Carbonate/Vitamin D3 [Calcium 600-Vit D3 400 Tablet] 1 tab PO BID [History] Cholecalciferol (Vitamin D3) [Vitamin D3] 1,000 units PO DAILY 01/21/18 [History ] Dorzolamide [Trusopt 2% Ophth Soln] 1 drop EYELF BID 01/21/18 [History] Furosemide [Lasix] 40 mg PO BID 01/21/18 [History] Latanoprost [Xalatan 0.005% Ophth Soln] 1 drop EYELF BEDTIME 01/21/18 [History] Loperamide [Imodium] 2 mg PO ASDIRECTED PRN 01/21/18 [History] Mag Hydrox/Al Hydrox/Simeth [Mi Acid Suspension] 30 ml PO Q4HR PRN 01/21/18 [ History] Magnesium Hydroxide [Milk of Magnesia] 30 ml PO DAILY PRN 01/21/18 [History] Mineral Oil/Petrolatum,White [Lubrifresh Pm Eye Ointment] 1 applic EYERT BEDTIME 01/21/18 [History] Mometasone Furoate [Nasonex] 2 spray NASBOTH DAILY 01/21/18 [History] Potassium Chloride [Klor-Con 10] 10 meq PO DAILY 01/21/18 [History] Primidone 250 mg PO TID@0700,1100,1700 01/21/18 [History] Propylene Glycol/Peg 400 [Systane Liquid Gel Eye Drops] 1 drop EYEBOTH BID 01/21 [History] Simvastatin [Zocor] 10 mg PO BEDTIME 01/21/18 [History] Timolol Maleate [Timoptic 0.5% Ophth Soln] 1 drop EYELF BID 01/21/18 [History] guaiFENesin 10 ml PO Q4HR PRN 01/21/18 [History] Enoxaparin Sodium [Lovenox] 140 mg SQ DAILY #4 ml 01/27/18 [Rx] Warfarin Sodium [Coumadin] 7.5 mg PO DAILY #5 tablet 01/27/18 [Rx] Past Medical History HEENT History: Reports: Cataract, Glaucoma, Impaired Vision, Otitis Media Cardiovascular History: Reports: Heart Failure Respiratory History: Reports: COPD, Other (See Below) Other Respiratory History: hosp for community acquired pneumonia and acute resp failure 12/26-01/06/18 Gastrointestinal History: Reports: Cholelithiasis, GERD Genitourinary History: Reports: Urinary Incontinence Musculoskeletal History: Reports: Osteoporosis Other Musculoskeletal History: was ambulatory with a walker until 1-2 months ago. 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 Psychiatric History: Reports: Other (See Below) Other Psychiatric History: mild intellectual disability, memory loss Endocrine/Metabolic History: Reports: Hypothyroidism - Infectious Disease History Infectious Disease History: Reports: Other (See Below) Other Infectious Disease History: unknown - Past Surgical History HEENT Surgical History: Reports: Cataract Surgery, Eye Surgery Cardiovascular Surgical History: Reports: None Respiratory Surgical History: Reports: None GI Surgical History: Reports: Cholecystectomy, Colonoscopy Female Surgical History: Reports: None Endocrine Surgical History: Reports: None Neurological Surgical History: Reports: Other (See Below) Other Neurological Surgeries/Procedures: cervical spine surgery Musculoskeletal Surgical History: Reports: Other (See Below) Other Musculoskeletal Surgeries/Procedures:: Cervical spine surg Social & Family History - Tobacco Use Smoking Status *Q: Never Smoker Second Hand Smoke Exposure: No - Caffeine Use Caffeine Use: Reports: Coffee - Recreational Drug Use Recreational Drug Use: No H&P Review of Systems - Review of Systems: Review Of Systems: See Below General: Denies: Fever, Chills, Malaise, Weakness, Night Sweats HEENT: Reports: No Symptoms Pulmonary: Denies: Shortness of Breath, Wheezing, Cough Cardiovascular: Reports: Edema. Denies: Chest Pain, Syncope, Blood Pressure Problem Gastrointestinal: Reports: Constipation. Denies: Abdominal Pain Genitourinary: Reports: Other (reddy catheter. ) Musculoskeletal: Reports: No Symptoms Skin: Reports: Dryness Psychiatric: Denies: Confusion, Depression, Hallucinations Neurological: Reports: Seizure (History of seizure disorder), Other (Bedbound). Denies: Headache, Syncope Hematologic/Lymphatic: Reports: No Symptoms Immunologic: Reports: No Symptoms Exam - Exam Exam: See Below - Vital Signs Vital Signs: Last Vital Signs Temp 98.7 F 01/28/18 06:51 Pulse 102 H 01/28/18 06:51 Resp 24 H 01/28/18 06:51 BP 110/42 L 01/28/18 06:51 Pulse Ox 94 L 01/28/18 06:51 Weight: 210 lb 7 oz - Exam Quality Assessment: Supplemental Oxygen, Urinary Catheter (Adequate clear yellow drainage), DVT Prophylaxis (Lomotil equate heparin and Coumadin for PE). No: Skin Breakdown General: Alert, Oriented, Cooperative. No: Mild Distress HEENT: Mucosa Moist & [employer] Neck: No: JVD Lungs: No: Crackles, Rales, Rub, Stridor, Wheezing Cardiovascular: Normal S1, Tachycardia GI/Abdominal Exam: Soft, Hernia Back Exam: No: CVA Tenderness (L), CVA Tenderness (R) Extremities: Other (Bilateral lower extremity edema, Bjorn bandages wide). No: Lora's Sign, Leg Pain Peripheral Pulses: 2+: Carotid (L) Skin: Warm Neurological: Cranial Nerves Intact, Normal Speech, Sensation Intact Neuro Extensive - Mental Status: Alert, Oriented x3, Normal Mood/Affect, Normal Cognition Neuro Extensive - Motor, Sensory, Reflexes: CN II-XII Intact Psychiatric: Alert, Normal Affect. No: Anxious - Patient Data Lab Results Last 24 hrs: Laboratory Results - last 24 hr 01/27/18 01/27/18 01/27/18 Range/Units 14:40 14:40 14:40 WBC 8.6 (5.0-10.0) 10^3/uL RBC 4.42 (3.80-5.50) 10^6/uL Hgb 13.8 (12.0-16.0) g/dL Hct 41.6 (37.0-47.0) % MCV 94.1 H (82.0-92.0) fL MCH 31.2 H (27.0-31.0) pg MCHC 33.2 (32.0-36.0) g/dL RDW 13.2 (11.5-14.5) % Plt Count 154 (150-300) 10^3/uL MPV 9.0 (7.4-10.4) fL Neut % (Auto) 88.5 H (50.0-70.0) % Lymph % (Auto) 6.3 L (20.0-40.0) % Mingo % (Auto) 4.0 (2.0-8.0) % Eos % (Auto) 1.1 (1.0-3.0) % Baso % (Auto) 0.1 (0.0-1.0) % Neut # (Auto) 7.7 H (2.5-7.0) 10^3/uL Lymph # (Auto) 0.5 L (1.0-4.0) 10^3/uL Mingo # (Auto) 0.3 (0.1-0.8) 10^3/uL Eos # (Auto) 0.1 (0.1-0.3) 10^3/uL Baso # (Auto) 0.0 (0.0-0.1) 10^3/uL PT 13.7 H D (8.9-11.4) SEC INR 1.4 H (0.9-1.1) APTT 42.7 H (20.8-31.2) SEC ABG pH (7.35-7.45) ABG pCO2 (35-45) mmHG ABG pO2 (80-105) mmHG ABG HCO3 (22-26) mmol/L ABG Total CO2 (23-27) mmol/L ABG O2 Saturation (95-98) % ABG Base Excess (-2-3) mmol/L O2 Delivery Device Oxygen Flow Rate L/min Blood Gas Comments Sodium 135 L (136-145) mmol/L Potassium 5.5 H (3.3-5.3) mmol/L Chloride 93 L (98-115) mmol/L Carbon Dioxide 41.5 H (21.0-32.0) mmol/L BUN 30 H (6-25) mg/dL Creatinine 0.60 (0.51-1.17) mg/dL Est Cr Clr Drug Dosing TNP Estimated GFR (MDRD) > 60 mL/min Glucose 168 H (70-110) mg/dL Calcium 9.3 (8.7-10.3) mg/dL Total Bilirubin 0.2 (0.2-1.0) mg/dL AST 53 H (15-37) U/L ALT 55 (12-78) U/L Alkaline Phosphatase 123 H (46-116) IU/L Creatine Kinase 30 (26-276) U/L CK-MB (CK-2) 1.10 (0.00-4.30) ng/mL Troponin I 0.05 (0.00-0.070) ng/mL B-Natriuretic Peptide 1030 H (0-100) pg/mL Total Protein 6.8 (6.4-8.2) g/dL Albumin 2.59 L (3.00-4.80) g/dL 18 18 01/28/18 Range/Units 14:45 07:15 07:15 WBC 6.3 (5.0-10.0) 10^3/uL RBC 4.18 (3.80-5.50) 10^6/uL Hgb 12.7 (12.0-16.0) g/dL Hct 38.7 (37.0-47.0) % MCV 92.6 H (82.0-92.0) fL MCH 30.4 (27.0-31.0) pg MCHC 32.8 (32.0-36.0) g/dL RDW 12.9 (11.5-14.5) % Plt Count 132 L (150-300) 10^3/uL MPV 9.8 (7.4-10.4) fL Neut % (Auto) 65.8 (50.0-70.0) % Lymph % (Auto) 18.7 L (20.0-40.0) % Mingo % (Auto) 12.0 H (2.0-8.0) % Eos % (Auto) 3.0 (1.0-3.0) % Baso % (Auto) 0.5 (0.0-1.0) % Neut # (Auto) 4.1 (2.5-7.0) 10^3/uL Lymph # (Auto) 1.2 (1.0-4.0) 10^3/uL Mingo # (Auto) 0.8 (0.1-0.8) 10^3/uL Eos # (Auto) 0.2 (0.1-0.3) 10^3/uL Baso # (Auto) 0.0 (0.0-0.1) 10^3/uL PT (8.9-11.4) SEC INR (0.9-1.1) APTT (20.8-31.2) SEC ABG pH 7.37 (7.35-7.45) ABG pCO2 81 H* (35-45) mmHG ABG pO2 39 L* (80-105) mmHG ABG HCO3 46.9 H (22-26) mmol/L ABG Total CO2 49 H (23-27) mmol/L ABG O2 Saturation 68 L (95-98) % ABG Base Excess 22 H (-2-3) mmol/L O2 Delivery Device Oxygen Flow Rate 2 L/min Blood Gas Comments See note Sodium 137 (136-145) mmol/L Potassium 4.4 (3.3-5.3) mmol/L Chloride 94 L (98-115) mmol/L Carbon Dioxide 41.9 H (21.0-32.0) mmol/L BUN 29 H (6-25) mg/dL Creatinine 0.51 (0.51-1.17) mg/dL Est Cr Clr Drug Dosing 77.94 Estimated GFR (MDRD) > 60 mL/min Glucose 119 H (70-110) mg/dL Calcium 8.6 L (8.7-10.3) mg/dL Total Bilirubin (0.2-1.0) mg/dL AST (15-37) U/L ALT (12-78) U/L Alkaline Phosphatase (46-116) IU/L Creatine Kinase (26-276) U/L CK-MB (CK-2) (0.00-4.30) ng/mL Troponin I (0.00-0.070) ng/mL B-Natriuretic Peptide (0-100) pg/mL Total Protein (6.4-8.2) g/dL Albumin (3.00-4.80) g/dL 01/28/18 01/28/18 Range/Units 07:35 07:40 WBC (5.0-10.0) 10^3/uL RBC (3.80-5.50) 10^6/uL Hgb (12.0-16.0) g/dL Hct (37.0-47.0) % MCV (82.0-92.0) fL MCH (27.0-31.0) pg MCHC (32.0-36.0) g/dL RDW (11.5-14.5) % Plt Count (150-300) 10^3/uL MPV (7.4-10.4) fL Neut % (Auto) (50.0-70.0) % Lymph % (Auto) (20.0-40.0) % Mingo % (Auto) (2.0-8.0) % Eos % (Auto) (1.0-3.0) % Baso % (Auto) (0.0-1.0) % Neut # (Auto) (2.5-7.0) 10^3/uL Lymph # (Auto) (1.0-4.0) 10^3/uL Mingo # (Auto) (0.1-0.8) 10^3/uL Eos # (Auto) (0.1-0.3) 10^3/uL Baso # (Auto) (0.0-0.1) 10^3/uL PT TNP (8.9-11.4) SEC INR 2.0 H (0.9-1.1) APTT (20.8-31.2) SEC ABG pH 7.50 H (7.35-7.45) ABG pCO2 66 H* (35-45) mmHG ABG pO2 46 L* (80-105) mmHG ABG HCO3 51.1 H (22-26) mmol/L ABG Total CO2 > 50 H (23-27) mmol/L ABG O2 Saturation 83 L (95-98) % ABG Base Excess 28 H (-2-3) mmol/L O2 Delivery Device Bipap Oxygen Flow Rate 4 L/min Blood Gas Comments Sodium (136-145) mmol/L Potassium (3.3-5.3) mmol/L Chloride (98-115) mmol/L Carbon Dioxide (21.0-32.0) mmol/L BUN (6-25) mg/dL Creatinine (0.51-1.17) mg/dL Est Cr Clr Drug Dosing Estimated GFR (MDRD) mL/min Glucose (70-110) mg/dL Calcium (8.7-10.3) mg/dL Total Bilirubin (0.2-1.0) mg/dL AST (15-37) U/L ALT (12-78) U/L Alkaline Phosphatase (46-116) IU/L Creatine Kinase (26-276) U/L CK-MB (CK-2) (0.00-4.30) ng/mL Troponin I (0.00-0.070) ng/mL B-Natriuretic Peptide (0-100) pg/mL Total Protein (6.4-8.2) g/dL Albumin (3.00-4.80) g/dL Result Diagrams: 01/30/18 07:10 01/31/18 07:35 EKG INTERPRETATION EKG Date: 01/28/18 Time: 07:45 Rhythm: NSR ST-T: Depressed QT: Prolonged Comparison: No Change EKG Interpretation Comments: Inverted T waves in precordial leads inferior leads Problem List Initiated/Reviewed/Updated: Yes Orders Last 24hrs: Active Orders 24 hr Category Date Time Status Patient Status [ADT] Routine ADT 01/27/18 14:56 Ordered BIPAP Adult [RT BiPAP/CPAP] [RC] ASDIRECTED Care 01/27/18 13:16 Active Cardiac Monitoring [RC] 0300,0700,1100,1500,1900,2300 Care 01/27/18 14:57 Active EKG Documentation Completion [RC] ASDIRECTED Care 01/27/18 13:20 Inactive EKG Documentation Completion [RC] ASDIRECTED Care 01/27/18 21:00 Active Intake and Output [RC] 0600,1400,2200 Care 01/27/18 14:57 Active Oxygen Therapy [RC] PRN Care 01/27/18 14:56 Active Pulse Oximetry [RC] CONTINUOUS Care 01/27/18 14:57 Active Up With Assistance [RC] ASDIRECTED Care 01/27/18 14:56 Active Urinary Catheter Assessment [RC] 0100,0900,1700 Care 01/27/18 14:56 Active Vital Signs [RC] 0300,0700,1100,1500,1900,2300 Care 01/27/18 14:56 Active 2 Gram Sodium Diet [DIET] Diet 01/27/18 Dinner Active Chest 1V Frontal [CR] Stat Exams 01/27/18 13:10 Taken B-TYPE NATRIURETIC PEPTIDE,BNP [CHEM] AM Lab 01/29/18 05:11 Ordered Acetaminophen [Tylenol Extra Strength] Med 01/27/18 17:44 Active 1,000 mg PO Q6HR PRN Albuterol/Ipratropium [DuoNeb 3.0-0.5 MG/3 ML] Med 01/27/18 17:44 Active 3 ml INH Q4HR PRN Albuterol/Ipratropium [DuoNeb 3.0-0.5 MG/3 ML] Med 01/27/18 21:00 Active 3 ml INH TIDRT Alum Hydrox/Mag Hydrox/Simeth [Mag-Al Plus] Med 01/27/18 17:56 Active 30 ml PO Q4H PRN Atropine [Atropine 0.1 MG/ML] Med 01/27/18 15:16 Active 0 mg IVPUSH ASDIRECTED PRN Budesonide [Pulmicort] Med 01/27/18 19:00 Active 0.5 mg INH BID@0600,1900 EPINEPHrine [EPINEPHrine 1:10,000] Med 01/27/18 15:16 Active 1 mg IVPUSH ASDIRECTED PRN Enoxaparin [Lovenox] Med 01/28/18 09:00 Active 140 mg SUBCUT DAILY Fluticasone Propionate [Flonase] Med 01/28/18 09:00 Active 0 gm NASBOTH DAILY Furosemide [Lasix] Med 01/27/18 21:00 Active 40 mg PO BID Lidocaine 2% [Xylocaine 2%] Med 01/27/18 15:16 Active 0 mg IVPUSH ASDIRECTED PRN Loperamide [Imodium] Med 01/27/18 17:44 Active 2 mg PO ASDIRECTED PRN Magnesium Hydroxide [Milk of Magnesia] Med 05/17/18 17:44 Active 30 ml PO DAILY PRN Nitroglycerin [Nitrostat] Med 01/27/18 15:16 Active 0.4 mg SL ASDIRECTED PRN Patient's Own Medication [Ptom] Med 01/28/18 09:00 Active 0 each EYEBOTH BID Patient's Own Medication [Ptom] Med 01/28/18 21:00 Active 0 each EYELF BEDTIME Patient's Own Medication [Ptom] Med 01/28/18 09:00 Active 0 each EYELF BID Patient's Own Medication [Ptom] Med 01/28/18 09:00 Active 0 each EYELF BID Patient's Own Medication [Ptom] Med 01/28/18 21:00 Active 0 each EYERT BEDTIME Potassium Chloride [Klor-Con 10] Med 01/28/18 09:00 Active 10 meq PO DAILY Primidone [Mysoline] Med 01/28/18 07:00 Active 250 mg PO TID@0700,1100,1700 Sodium Chloride 0.9% [Syrex Flush] Med 01/27/18 14:56 Active 5 ml FLUSH Q8HR PRN Warfarin [Coumadin] Med 01/28/18 18:00 Active 3 mg PO DAILY@1800 guaiFENesin [Robitussin] Med 01/27/18 17:44 Active 200 mg PO Q4HR PRN Peripheral IV Insertion Adult [OM.PC] Routine Oth 01/27/18 14:56 Ordered Resuscitation Status Routine Resus Stat 01/27/18 14:56 Ordered EKG 12 Lead [EK] Routine Ther 01/27/18 13:20 Stop Req EKG 12 Lead [EK] Routine Ther 01/28/18 08:00 Ordered Medication Orders Acetaminophen (Tylenol Extra Strength) 1,000 mg PO Q6HR PRN PRN Reason: mild-moderate Pain Al Hydroxide/Mg Hydroxide (Mag-Al Plus) 30 ml PO Q4H PRN PRN Reason: INDIGESTION Albuterol/Ipratropium (Duoneb 3.0-0.5 Mg/3 Ml) 3 ml INH Q4HR PRN PRN Reason: Shortness of Breath Albuterol/Ipratropium (Duoneb 3.0-0.5 Mg/3 Ml) 3 ml INH TIDRT IVETH Last Admin: 01/28/18 06:08 Dose: 3 ml Admin: 01/27/18 20:20 Dose: 3 ml Atropine Sulfate (Atropine 0.1 Mg/Ml) 0 mg IVPUSH ASDIRECTED PRN PRN Reason: Heart Budesonide (Pulmicort) 0.5 mg INH BID@0600,1900 [facility] Last Admin: 01/28/18 06:53 Dose: 0.5 mg Admin: 01/27/18 18:27 Dose: 0.5 mg Enoxaparin Sodium (Lovenox) 140 mg SUBCUT DAILY [facility] Epinephrine HCl (Epinephrine 1:10,000) 1 mg IVPUSH ASDIRECTED PRN PRN Reason: Heart Fluticasone Propionate (Flonase) 0 gm NASBOTH DAILY [facility] Furosemide (Lasix) 40 mg PO BID [facility] Last Admin: 01/28/18 09:30 Dose: 40 mg Guaifenesin (Robitussin) 200 mg PO Q4HR PRN PRN Reason: Cough Lidocaine HCl (Xylocaine 2%) 0 mg IVPUSH ASDIRECTED PRN PRN Reason: Heart Loperamide HCl (Imodium) 2 mg PO ASDIRECTED PRN PRN Reason: Diarrhea Magnesium Hydroxide (Milk Of Magnesia) 30 ml PO DAILY PRN PRN Reason: Constipation Nitroglycerin (Nitrostat) 0.4 mg SL ASDIRECTED PRN PRN Reason: Heart Ptom Systane (Liquid Gel Eye Drops) 0 each EYEBOTH BID [facility] Last Admin: 01/28/18 09:35 Dose: 1 each Ptom Artificial (Tears Ophth Ointment) 0 each EYERT BEDTIME [facility] Ptom Timolol Maleate 0.5% Ophth Soln 5 Ml 0 each EYELF BID [facility] Last Admin: 01/28/18 09:33 Dose: 1 each Ptom Latanoprost 0.005% Ophth Soln 2 .5 Ml 0 each EYELF BEDTIME [facility] Ptom Dorzolamide (2% Ophth Soln) 0 each EYELF BID [facility] Last Admin: 01/28/18 09:25 Dose: 1 each Potassium Chloride (Klor-Con 10) 10 meq PO DAILY [facility] Last Admin: 01/28/18 09:29 Dose: 10 meq Primidone (Mysoline) 250 mg PO TID@0700,1100,1700 [facility] Last Admin: 01/28/18 06:28 Dose: 250 mg Sodium Chloride (Syrex Flush) 5 ml FLUSH Q8HR PRN PRN Reason: Keep Vein Open Warfarin Sodium (Coumadin) 3 mg PO DAILY@1800 [facility] Assessment/Plan Comment:: HISTORY OF PRESENT ILLNESS This 67-year-old female who was discharged from the hospital and readmitted within hours later due to hypoxia. She was discharged yesterday January 27 and the shelter turned her and she had decreased oxygen saturations. Patient was hospitalized initially on January 21 after evaluation at the [facility] due to exacerbation of congestive heart failure, as evidence of increased shortness of breath and weight gain. Her hospital course was complicated by findings of a pulmonary embolism, pleural effusions, elevated BNP requiring aggressive diuresis, increase oxygenation requirements. Early during her hospital day she was placed on antibiotics of vancomycin and Levaquin due to suspected pneumonia. Upon arrival, pt was on 10L of O2 with SaO2 of 83%. Pt was placed on a NRB @15L and transitioned to Bipap. Pertinent ED findings ABG pH 7.37 CO2 80 PO2 39 BNP 1030 Pox/94% 5 L nasal cannula Chest x-ray small pleural effusions CHF component Pertinent past diagnostics --CTA chest December 2017 (due to shortness of breath) no PE, RML pneumonia, atelectasis, groundglass changes with air trapping, bilateral hilar region lymphadenopathy --CXR January 21, 2018; acute infiltrates resolved, heart size normal, no pulmonary edema --XRAY Video Swallow December,; persistent flash penetration thin consistencies worsens with use of straws --EKG, December 26, 2017 sinus rhythm, marked sinus arrhythmia --Echo, not on file Overnight, patient was on BiPAP with significant improvement in overall mentation, decreased CO2 and improved greatly improved respiratory status Primary problems HF; unknown type, no echo on file Pulmonary embolism, Obesity, morbid Disuse edema Aspirations Chronic problems HLD Seizure disorder Osteopenia History of glaucoma, open angle Spinal stenosis, cervical, PULMONARY: Pulmonary status has improved, pH 7.50, PCO2 down to 62, PaO2 39, HCO3 50, now back to baseline mentation--lucid, talkative, pickwickian-type body habitus, obesity contributory, no rales, POX 95% L NC, B2 agonist, ICS with Pulmicort, Lasix 40 BID. Previous notes regarding history of COPD not supported in chart, never smoker, discussed this with family. Pulmonary Embolism, continue oxygen support, PE, continue LMWH with overlap Coumadin, INR 2.0 today, reduce Coumadin tonight. Reassess INR in a.m. thickened liquid diet CV: Blood pressure systolic 100-110, adequate MAP, EKG with ischemia, no chest pain, possible CV strain however adequate blood pressure now, BNP improved yet elevated, twice a day diuretic 40 mg Lasix, strict I&O, Reddy catheterization for now, monitor renal indices, no BJORN inhibitor on home medication, monitor potassium carefully. HEMATOLOGY: Hgb/Hct normal; platelets 132,000 FLUIDS, ELECTROLYTES, AND RENAL: I/O, diuresing -1100 o/p since last night. Reddy catheter, Lasix, K+ normal, onging diuretic therapy. BUN/Creat ration 55:1 --will continue with diuresing for now however we'll monitor BP carefully, Calcium 8.6 sodium 137. ENDOCRINE: Nondiabetic, assess TSH, Off PO steroids. INFECTIOUS DISEASE: Doubtful pneumonia component, had been on dual-antibiotics and were discontinue previous admission. White count normal, no neutrophilia, no fever, no sputum or cough, just CXR 01/27 no infiltrates/consolidation. HEALTH MAINTENANCE: GI stress prophylaxis, add Protonix, will prefer JACQUELINE stockings however due to obesity will accept 6IN/large spiral Bjorn wrap's BLE due to pulmonary embolism possible DVT source. GI: No vomiting, Avoid straws, taking PO. Thickened liquid diet CODE STATUS, DO NOT RESUSCITATE, Long discussion with patient and family, although I do feel patient could go back to long-term care today since her dramatic improvement with overnight BiPAP , mutual decision to at least keep her 48 more hours before sending back to LTC , continue anticoagulation efforts, monitoring ongoing oxygen saturations, and diuresing therapy.
[2018-01-28] MEDS: Pantoprazole 40 MG Vial IVPUSH SCH (10:54)
[2018-01-28] MEDS: Primidone 50 MG Tab PO SCH ×2 (13:40→17:32)
[2018-01-28] MEDS ORDERED: Warfarin 2 MG Tab PO SCH (18:00)
[2018-01-28] MEDS: LATANOPROST 0.005% EYELF SCH (20:35)
[2018-01-28] MEDS: ARTIFICIAL TEARS EYERT SCH (20:37)
[2018-01-29] MEDS: Budesonide 0.5 MG/2 ML Neb Susp INH SCH ×2 (05:58→20:08)
[2018-01-29] MEDS: Albuterol/Ipratropium 3.0-0.5 MG/3 ML Neb Soln INH SCH (06:14)
[2018-01-29] MEDS: Primidone 50 MG Tab PO SCH ×3 (06:19→17:28)
[2018-01-29 07:43] LABS: CHLORIDE,CL 94 mmol/L (98-115); SODIUM,NA 140 mmol/L (136-145)
[2018-01-29] MEDS: Sodium Chloride 0.9% 5 ML Syringe FLUSH PRN (07:50)
[2018-01-29] MEDS: Fluticasone Propionate Nasal Spray 16 GM Bottle NASBOTH SCH (08:54)
[2018-01-29] MEDS ORDERED: Furosemide 40 MG/4 ML VIAL IVPUSH ONE (09:19)
[2018-01-29] MEDS ORDERED: Furosemide 40 MG/4 ML VIAL ONE (09:20)
[2018-01-29] MEDS: Enoxaparin 150 MG/1 ML Syringe SUBCUT SCH (09:45)
[2018-01-29] MEDS: Pantoprazole 40 MG Vial IVPUSH SCH (09:45)
[2018-01-29] MEDS: DORZOLAMIDE 2% EYELF SCH ×2 (11:55→20:32)
[2018-01-29] MEDS: SYSTANE EYE EYEBOTH SCH ×2 (11:55→20:36)
[2018-01-29] MEDS: Potassium Chloride 10 MEQ Tab.ER PO SCH (11:56)
[2018-01-29] MEDS: TIMOLOL MALEATE 0.5% EYELF SCH ×2 (11:56→20:28)
[2018-01-29] MEDS: Furosemide 40 MG Tab PO SCH (11:56)
--- NOTE | 2018-01-29 12:14 | PCM.PN ---
- General Info Date of Service: 01/29/18 Subjective Update: Ms. Aly was reportedly doing fair and about at her baseline interactiveness up until this morning when she was found to be more lethargic, tachypneic, and hypoxic into the mid-80s on 4L via HFNC. Staff reports this is how she had been at previous times when she became hypercarbic during her most recent hospitalization. I was notified and ordered to obtain ABG and start BiPAP. Unfortunately, ABG was unable to be obtained, but BiPAP started with improvement in work of breathing and oxygenation. She is now resting comfortably with BiPAP in place and arouses to loud verbal and tactile stimuli. Unable to provide further history or ROS due to status. Sister, at bedside, reports this is how she had become during her most recent hospitalization at times. - Patient Data Vitals - Most Recent: Last Vital Signs Temp 36.2 C 01/29/18 11:30 Pulse 105 H 01/29/18 11:30 Resp 25 H 01/29/18 11:30 BP 100/53 L 01/29/18 11:30 Pulse Ox 90 L 01/29/18 11:30 Weight - Most Recent: 95.935 kg I&O - Last 24 Hours: Intake & Output 01/28/18 01/29/18 01/29/18 22:59 06:59 14:59 Intake Total 150 0 Output Total 100 100 Balance 50 -100 Lab Results Last 24 Hours: Laboratory Results - last 24 hr 01/29/18 01/29/18 Range/Units 07:10 07:10 PT 14.8 H (8.9-11.4) SEC INR 1.5 H (0.9-1.1) Sodium 140 (136-145) mmol/L Potassium 5.0 (3.3-5.3) mmol/L Chloride 94 L (98-115) mmol/L Carbon Dioxide 44.7 H (21.0-32.0) mmol/L BUN 30 H (6-25) mg/dL Creatinine 0.63 (0.51-1.17) mg/dL Est Cr Clr Drug Dosing 63.09 mL/min Estimated GFR (MDRD) > 60 mL/min Glucose 167 H (70-110) mg/dL Calcium 8.7 (8.7-10.3) mg/dL B-Natriuretic Peptide 1170 H (0-100) pg/mL Med Orders - Current: Current Medications Acetaminophen (Tylenol Extra Strength) 1,000 mg PO Q6HR PRN PRN Reason: mild-moderate Pain Al Hydroxide/Mg Hydroxide (Mag-Al Plus) 30 ml PO Q4H PRN PRN Reason: INDIGESTION Albuterol/Ipratropium (Duoneb 3.0-0.5 Mg/3 Ml) 3 ml INH Q4HR PRN PRN Reason: Shortness of Breath Last Admin: 01/29/18 07:49 Dose: 3 ml Atropine Sulfate (Atropine 0.1 Mg/Ml) 0 mg IVPUSH ASDIRECTED PRN PRN Reason: Heart Budesonide (Pulmicort) 0.5 mg INH BID@0600,1900 [facility] Last Admin: 01/29/18 05:58 Dose: 0.5 mg Enoxaparin Sodium (Lovenox) 140 mg SUBCUT DAILY [facility] Last Admin: 01/29/18 09:45 Dose: 140 mg Epinephrine HCl (Epinephrine 1:10,000) 1 mg IVPUSH ASDIRECTED PRN PRN Reason: Heart Fluticasone Propionate (Flonase) 0 gm NASBOTH DAILY [facility] Last Admin: 01/29/18 08:54 Dose: 1 spray Furosemide (Lasix) 40 mg PO BID [facility] Last Admin: 01/29/18 11:56 Dose: Not Given Guaifenesin (Robitussin) 200 mg PO Q4HR PRN PRN Reason: Cough Lidocaine HCl (Xylocaine 2%) 0 mg IVPUSH ASDIRECTED PRN PRN Reason: Heart Loperamide HCl (Imodium) 2 mg PO ASDIRECTED PRN PRN Reason: Diarrhea Magnesium Hydroxide (Milk Of Magnesia) 30 ml PO DAILY PRN PRN Reason: Constipation Nitroglycerin (Nitrostat) 0.4 mg SL ASDIRECTED PRN PRN Reason: Heart Pantoprazole Sodium (Protonix Iv) 40 mg IVPUSH DAILY [facility] Last Admin: 01/29/18 09:45 Dose: 40 mg Ptom Systane (Liquid Gel Eye Drops) 0 each EYEBOTH BID [facility] Last Admin: 01/29/18 11:55 Dose: Not Given Ptom Artificial (Tears Ophth Ointment) 0 each EYERT BEDTIME [facility] Last Admin: 01/28/18 20:37 Dose: 1 each Ptom Timolol Maleate 0.5% Ophth Soln 5 Ml 0 each EYELF BID [facility] Last Admin: 01/29/18 11:56 Dose: Not Given Ptom Latanoprost 0.005% Ophth Soln 2 .5 Ml 0 each EYELF BEDTIME [facility] Last Admin: 01/28/18 20:35 Dose: 1 each Ptom Dorzolamide (2% Ophth Soln) 0 each EYELF BID [facility] Last Admin: 01/29/18 11:55 Dose: Not Given Potassium Chloride (Klor-Con 10) 10 meq PO DAILY [facility] Last Admin: 01/29/18 11:56 Dose: Not Given Primidone (Mysoline) 250 mg PO TID@0700,1100,1700 [facility] Last Admin: 01/29/18 11:56 Dose: Not Given Sodium Chloride (Syrex Flush) 5 ml FLUSH Q8HR PRN PRN Reason: Keep Vein Open Last Admin: 01/29/18 07:50 Dose: 5 ml Warfarin Sodium (Coumadin) 3 mg PO DAILY@1800 [facility] Last Admin: 01/28/18 17:33 Dose: 3 mg Discontinued Medications Albuterol/Ipratropium (Duoneb 3.0-0.5 Mg/3 Ml) 3 ml INH TIDRT [facility] Last Admin: 01/29/18 06:14 Dose: 3 ml Artificial Tears (Artificial Tears Ointment) 0 gm EYERT BEDTIME [facility] Last Admin: 01/28/18 00:07 Dose: Not Given Dorzolamide HCl (Trusopt 2% Ophth Soln) 0 ml EYELF BID [facility] Last Admin: 01/28/18 00:07 Dose: Not Given Enoxaparin Sodium (Lovenox) 95 mg SUBCUT ONETIME ONE Stop: 01/27/18 21:01 Last Admin: 01/27/18 20:20 Dose: 95 mg Furosemide (Lasix) 40 mg IVPUSH NOW ONE Stop: 01/27/18 13:17 Last Admin: 01/27/18 16:26 Dose: 40 mg Furosemide (Lasix) 40 mg IVPUSH NOW ONE Stop: 01/29/18 09:20 Last Admin: 01/29/18 09:26 Dose: 40 mg Furosemide (Lasix) Confirm Administered Dose 40 mg .ROUTE .STK-MED ONE Stop: 01/29/18 09:21 Last Admin: 01/29/18 09:26 Dose: Not Given Latanoprost (Xalatan 0.005% Ophth Soln) 0 ml EYELF BEDTIME [facility] Last Admin: 01/28/18 00:07 Dose: Not Given Ptom Artificial (Tears Ophth Ointment) 0 each EYERT BEDTIME [facility] Ptom Timolol Maleate 0.5% Ophth Soln 5 Ml 0 each EYELF BID [facility] Primidone (Mysoline) 250 mg PO TID@0700,1100,1700 [facility] Last Admin: 01/28/18 10:54 Dose: 250 mg Timolol Maleate (Timoptic 0.5% Ophth Soln) 0 ml EYELF BID [facility] Last Admin: 01/28/18 00:07 Dose: Not Given Warfarin Sodium (Coumadin) 7.5 mg PO DAILY@1800 [facility] Last Admin: 01/27/18 18:28 Dose: 7.5 mg - Exam Physical Findings Comments:: GENERAL: Elderly white female appearing much older than stated age lying in hospital bed with BiPAP in place. HEENT: Normocephalic, atraumatic. Conjunctiva clear, PERRL. Mucous membranes moist. NECK: No masses. CV: Borderline tachycardia, regular rhythm, no murmurs, rubs, or gallops. 2+ radial and pedal pulses. PULMONARY: Normal rate, severely diminished breath sounds especially at bases, no wheezes, rales, or rhonchi. ABDOMEN: Morbidly obese, positive bowel sounds, soft. EXTREMITIES: 1+ edema of feet and hands, but with wrinkles present throughout. MUSCULOSKELETAL: Unable to assess. DERMATOLOGIC: Ashen color. PSYCHIATRIC: Responsive to loud verbal and tactile stimuli only. Not verbally interactive. 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 [facility], where she was turned onto her left side and had decreased oxygen saturations. ED course: She was sent to the ED via EMS and upon arrival, she was on 10L of O2 with SaO2 of 83%. She was placed on a NRB @15L and transitioned to BiPAP. ABG 7.37/80/39. BNP 1030. Chest XR showed small pleural bilateral effusions and moderate pulmonary vascular congestion. Pertinent past diagnostics: - 12/26/17 Chest CTA: No PE, RML pneumonia, cardiomegaly, atelectasis, ground glass changes with air trapping, bilateral hilar region lymphadenopathy. - 12/26/17 EKG: Sinus rhythm with marked sinus arrhythmia. - 12/29/17 Chest XR : Mild cardiomegaly with minor vascular prominence without fany evidence of CHF. - 12/30/17 Video swallow study: Persistent flash penetration with thin consistencies which worsens with use of straws; Speech therapy recommended soft dysphagia diet and thin liquids without straws. - 01/21/18 Chest XR: Acute infiltrates resolved, heart size normal, no pulmonary edema. - 01/24/18 Chest CTA: Moderate pleural effusions R>L, moderate pulmonary emboli L >R, R hilar fullness, and groundglass pulmonary parenchymal opacities Hospital course: During the first night, the patient was on BiPAP with significant improvement in overall mentation, decreased CO2 and greatly improved respiratory status. BiPAP was discontinued the morning of 01/28/18. Since around 0730 on 01/29/19, she has had recurrence of significant lethargy, tachypnea, and worsening hypoxia. ABG was ordered, but unable to be obtained, so BiPAP started with some initial improvement, but she remains quite lethargic. Had an extensive conversation with the patient's daughter, Yanelis, and son-in-law , both at bedside, and with her DPO[facility]-healthcare, Adrian, over the phone about her current status, which is quite guarded. They all reiterated the patient's wishes to be a DNR/DNI and focus on comfort. They each stated that the entire family was in agreement that she would not wish to be transferred for any further diagnostic testing or therapeutic care. They would be willing to continue with BiPAP today to see if she is able to become more alert, but if she starts decompensating further, they wish to proceed with only comfort cares. Hospitalization problems: # Acute on chronic hypxic and hypercapneic respiratory failure: On baseline 3lpm via HFNC. # Acute decompensated heart failure: Onset in the last week with elevated BNP, cardiomegaly, pleural effusions, and pulmonary vascular congestion. No prior echocardiogram. Improved edema and pleural effusions since last admission. # Pulmonary emboli: Dx by CT chest 01/24/18. # Morbid obesity: BMI 41. # Obesity hypoventilation syndrome, likely # COPD, possible: Hospitalized for documented COPD exacerbation in mid-December 2017. No prior PFTs or smoking history. # Chronic lymphedema # Mildly elevated TSH Current respiratory compromise likely multifactorial from chronic obesity hypoventilation syndrome and possible underlying COPD as well as acute decompensated heart failure and pulmonary emboli. No obvious current element of COPD exacerbation or infectious etiology. She has had waxing and waning of respiratory status, which previously improved with BiPAP, favoring her current status as a result of hypercarbia once again as she had been without BiPAP for approximately 24hrs. She has had 1600cc output since admission without improvement in clinical status. EKG with ST-segment changes, though normal troponin, for which etiology is likely ACS vs. strain related to pulmonary emboli and other respiratory issues. Despite no local capabilities to obtain echocardiogram or other diagnostic studies, family declines consideration of transfer, and wishes to proceed with current management with consideration for only comfort cares if clinical status does not improve. - Continue BiPAP - Continue Pulmicort and DuoNebs prn - Furosemide 40mg IV now; consider bumetanide 1mg as PM dosing if furosemide minimally effective - Continue enoxaparin at therapeutic dosing per pharmacy for bridging with warfarin - Continue telemetry, strict I/O, and respiratory monitoring - CBC, CMP, INR, and repeat troponin, if family OK with repeating labs Chronic, stable conditions: # Seizure disorder: Continue Primidone. # Hyperlipidemia # Osteopenia # Cervical spinal stenosis: Continue Tylenol prn. # Glaucoma, open angle: Continue eye drops. Hospitalization details: # FEN: No IVF. Electrolytes with mild hypochloremia and elevated CO2. Soft dysphagia diet, if tolerated, and thin liquids without straws; changed based on review of prior speech therapy recommendations. # PPX: Therapeutic enoxaparin for pulmonary emboli. PPI. # Code status: DNR/DNI. # [facility] phone as detailed above. # Disposition: Continue on critical care. Discharge to SNF pending improvement and stabilization in clinical status.
[2018-01-29] MEDS ORDERED: Warfarin 5 MG Tab PO SCH (18:00)
[2018-01-29] MEDS ORDERED: Bumetanide 1 MG/4 ML MDV IVPUSH ONE (18:00)
[2018-01-29] MEDS ORDERED: Warfarin 2.5 MG Tab PO ONE (19:45)
[2018-01-29] MEDS: ARTIFICIAL TEARS EYERT SCH (20:27)
[2018-01-29] MEDS: LATANOPROST 0.005% EYELF SCH (20:34)
[2018-01-30] MEDS: Budesonide 0.5 MG/2 ML Neb Susp INH SCH ×2 (05:58→18:32)
[2018-01-30] MEDS: Primidone 50 MG Tab PO SCH ×3 (05:59→17:29)
[2018-01-30 07:46] LABS: CHLORIDE,CL 96 mmol/L (98-115); SODIUM,NA 140 mmol/L (136-145)
[2018-01-30] MEDS: Potassium Chloride 10 MEQ Tab.ER PO SCH (08:20)
[2018-01-30] MEDS: DORZOLAMIDE 2% EYELF SCH ×2 (08:28→20:57)
[2018-01-30] MEDS: Enoxaparin 150 MG/1 ML Syringe SUBCUT SCH (08:31)
[2018-01-30] MEDS: TIMOLOL MALEATE 0.5% EYELF SCH ×2 (08:33→21:03)
[2018-01-30] MEDS: Pantoprazole 40 MG Vial IVPUSH SCH (08:33)
[2018-01-30] MEDS: Sodium Chloride 0.9% 5 ML Syringe FLUSH PRN (08:35)
[2018-01-30] MEDS: Fluticasone Propionate Nasal Spray 16 GM Bottle NASBOTH SCH (08:37)
[2018-01-30] MEDS: SYSTANE EYE EYEBOTH SCH ×2 (08:40→21:05)
--- NOTE | 2018-01-30 11:46 | PCM.PN ---
- General Info Date of Service: 01/30/18 Subjective Update: Ms. Aly has continued on BiPAP since yesterday morning. She has been tolerating this quite well and became more responsive approximately 6 hours after initiation. Oxygen has been able to be titrated down this morning. She reports that her breathing feels better today and states she has no complaints. In particular, denies any pain or shortness of breath. Nursing reports that several family members called to ask about her status throughout the past 24 hours, including during the night; family has been encouraged to have 1-2 members get updates and then pass information along to the rest of the family in order to minimize confusion and ensure only those supposed to be updated are getting information. - Patient Data Vitals - Most Recent: Last Vital Signs Temp 36.4 C 01/30/18 11:00 Pulse 100 01/30/18 11:00 Resp 23 H 01/30/18 11:00 BP 100/60 01/30/18 11:00 Pulse Ox 92 L 01/30/18 11:00 Weight - Most Recent: 97.205 kg I&O - Last 24 Hours: Intake & Output 01/29/18 01/30/18 01/30/18 22:59 06:59 14:59 Intake Total 60 40 Output Total 250 50 Balance -190 -10 Lab Results Last 24 Hours: Laboratory Results - last 24 hr 01/30/18 01/30/18 01/30/18 Range/Units 07:10 07:10 07:10 WBC 8.3 (5.0-10.0) 10^3/uL RBC 4.31 (3.80-5.50) 10^6/uL Hgb 13.1 (12.0-16.0) g/dL Hct 40.7 (37.0-47.0) % MCV 94.5 H (82.0-92.0) fL MCH 30.4 (27.0-31.0) pg MCHC 32.2 (32.0-36.0) g/dL RDW 13.4 (11.5-14.5) % Plt Count 170 (150-300) 10^3/uL MPV 9.4 (7.4-10.4) fL Neut % (Auto) 72.7 H (50.0-70.0) % Lymph % (Auto) 13.3 L (20.0-40.0) % [place]ardo % (Auto) 10.2 H (2.0-8.0) % Eos % (Auto) 2.7 (1.0-3.0) % Baso % (Auto) 1.1 H (0.0-1.0) % Neut # (Auto) 6.1 (2.5-7.0) 10^3/uL Lymph # (Auto) 1.1 (1.0-4.0) 10^3/uL [place]ardo # (Auto) 0.8 (0.1-0.8) 10^3/uL Eos # (Auto) 0.2 (0.1-0.3) 10^3/uL Baso # (Auto) 0.1 (0.0-0.1) 10^3/uL PT 18.6 H (8.9-11.4) SEC INR 1.9 H (0.9-1.1) Sodium 140 (136-145) mmol/L Potassium 4.3 (3.3-5.3) mmol/L Chloride 96 L (98-115) mmol/L Carbon Dioxide 46.1 H (21.0-32.0) mmol/L BUN 31 H (6-25) mg/dL Creatinine 0.58 (0.51-1.17) mg/dL Est Cr Clr Drug Dosing 68.53 mL/min Estimated GFR (MDRD) > 60 mL/min Glucose 130 H (70-110) mg/dL Calcium 8.5 L (8.7-10.3) mg/dL Total Bilirubin 0.1 L (0.2-1.0) mg/dL AST 39 H (15-37) U/L ALT 46 (12-78) U/L Alkaline Phosphatase 114 (46-116) IU/L Troponin I 0.05 (0.00-0.070) ng/mL Total Protein 6.4 (6.4-8.2) g/dL Albumin 2.52 L (3.00-4.80) g/dL Med Orders - Current: Current Medications Acetaminophen (Tylenol Extra Strength) 1,000 mg PO Q6HR PRN PRN Reason: mild-moderate Pain Al Hydroxide/Mg Hydroxide (Mag-Al Plus) 30 ml PO Q4H PRN PRN Reason: INDIGESTION Albuterol/Ipratropium (Duoneb 3.0-0.5 Mg/3 Ml) 3 ml INH Q4HR PRN PRN Reason: Shortness of Breath Last Admin: 01/29/18 07:49 Dose: 3 ml Atropine Sulfate (Atropine 0.1 Mg/Ml) 0 mg IVPUSH ASDIRECTED PRN PRN Reason: Heart Budesonide (Pulmicort) 0.5 mg INH BID@0600,1900 [facility] Last Admin: 01/30/18 05:58 Dose: 0.5 mg Bumetanide (Bumex) 1 mg IVPUSH BID [facility] Enoxaparin Sodium (Lovenox) 140 mg SUBCUT DAILY [facility] Last Admin: 01/30/18 08:31 Dose: 140 mg Epinephrine HCl (Epinephrine 1:10,000) 1 mg IVPUSH ASDIRECTED PRN PRN Reason: Heart Fluticasone Propionate (Flonase) 0 gm NASBOTH DAILY [facility] Last Admin: 01/30/18 08:37 Dose: 1 spray Guaifenesin (Robitussin) 200 mg PO Q4HR PRN PRN Reason: Cough Lidocaine HCl (Xylocaine 2%) 0 mg IVPUSH ASDIRECTED PRN PRN Reason: Heart Loperamide HCl (Imodium) 2 mg PO ASDIRECTED PRN PRN Reason: Diarrhea Magnesium Hydroxide (Milk Of Magnesia) 30 ml PO DAILY PRN PRN Reason: Constipation Nitroglycerin (Nitrostat) 0.4 mg SL ASDIRECTED PRN PRN Reason: Heart Pantoprazole Sodium (Protonix Iv) 40 mg IVPUSH DAILY [facility] Last Admin: 01/30/18 08:33 Dose: 40 mg Ptom Systane (Liquid Gel Eye Drops) 0 each EYEBOTH BID [facility] Last Admin: 01/30/18 08:40 Dose: 1 each Ptom Artificial (Tears Ophth Ointment) 0 each EYERT BEDTIME [facility] Last Admin: 01/29/18 20:27 Dose: 1 each Ptom Timolol Maleate 0.5% Ophth Soln 5 Ml 0 each EYELF BID [facility] Last Admin: 01/30/18 08:33 Dose: 1 each Ptom Latanoprost 0.005% Ophth Soln 2 .5 Ml 0 each EYELF BEDTIME [facility] Last Admin: 01/29/18 20:34 Dose: 1 each Ptom Dorzolamide (2% Ophth Soln) 0 each EYELF BID [facility] Last Admin: 01/30/18 08:28 Dose: 1 each Potassium Chloride (Klor-Con 10) 10 meq PO DAILY [facility] Last Admin: 01/30/18 08:20 Dose: 10 meq Primidone (Mysoline) 250 mg PO TID@0700,1100,1700 [facility] Last Admin: 01/30/18 11:40 Dose: 250 mg Sodium Chloride (Syrex Flush) 5 ml FLUSH Q8HR PRN PRN Reason: Keep Vein Open Last Admin: 01/30/18 08:35 Dose: 5 ml Warfarin Sodium (Pharmacy To Dose - Warfarin) 1 dose .XX ASDIRECTED [facility] Warfarin Sodium (Coumadin) 5 mg PO DAILY@1800 [facility] Stop: 01/30/18 18:01 Discontinued Medications Albuterol/Ipratropium (Duoneb 3.0-0.5 Mg/3 Ml) 3 ml INH TIDRT [facility] Last Admin: 01/29/18 06:14 Dose: 3 ml Artificial Tears (Artificial Tears Ointment) 0 gm EYERT BEDTIME [facility] Last Admin: 01/28/18 00:07 Dose: Not Given Bumetanide (Bumex) 1 mg IVPUSH ONETIME ONE Stop: 01/29/18 18:01 Last Admin: 01/29/18 17:34 Dose: 1 mg Dorzolamide HCl (Trusopt 2% Ophth Soln) 0 ml EYELF BID [facility] Last Admin: 01/28/18 00:07 Dose: Not Given Enoxaparin Sodium (Lovenox) 95 mg SUBCUT ONETIME ONE Stop: 01/27/18 21:01 Last Admin: 01/27/18 20:20 Dose: 95 mg Furosemide (Lasix) 40 mg IVPUSH NOW ONE Stop: 01/27/18 13:17 Last Admin: 01/27/18 16:26 Dose: 40 mg Furosemide (Lasix) 40 mg PO BID [facility] Last Admin: 01/29/18 11:56 Dose: Not Given Furosemide (Lasix) 40 mg IVPUSH NOW ONE Stop: 01/29/18 09:20 Last Admin: 01/29/18 09:26 Dose: 40 mg Furosemide (Lasix) Confirm Administered Dose 40 mg .ROUTE .STK-MED ONE Stop: 01/29/18 09:21 Last Admin: 01/29/18 09:26 Dose: Not Given Latanoprost (Xalatan 0.005% Ophth Soln) 0 ml EYELF BEDTIME [facility] Last Admin: 01/28/18 00:07 Dose: Not Given Ptom Artificial (Tears Ophth Ointment) 0 each EYERT BEDTIME [facility] Ptom Timolol Maleate 0.5% Ophth Soln 5 Ml 0 each EYELF BID [facility] Primidone (Mysoline) 250 mg PO TID@0700,1100,1700 [facility] Last Admin: 01/28/18 10:54 Dose: 250 mg Timolol Maleate (Timoptic 0.5% Ophth Soln) 0 ml EYELF BID [facility] Last Admin: 01/28/18 00:07 Dose: Not Given Warfarin Sodium (Coumadin) 7.5 mg PO DAILY@1800 [facility] Last Admin: 01/27/18 18:28 Dose: 7.5 mg Warfarin Sodium (Coumadin) 3 mg PO DAILY@1800 [facility] Last Admin: 01/28/18 17:33 Dose: 3 mg Warfarin Sodium (Coumadin) 5 mg PO DAILY@1800 [facility] Last Admin: 01/29/18 17:28 Dose: 5 mg Warfarin Sodium (Coumadin) 2.5 mg PO ONETIME ONE Stop: 01/29/18 19:46 Last Admin: 01/29/18 20:25 Dose: 2.5 mg - Exam Physical Findings Comments:: GENERAL: Elderly white female appearing much older than stated age lying in hospital bed with BiPAP in place. HEENT: Normocephalic, atraumatic. Conjunctiva clear, PERRL. Mucous membranes moist. NECK: No masses. CV: Borderline tachycardia, regular rhythm, no murmurs, rubs, or gallops. 2+ radial and pedal pulses. PULMONARY: Normal rate, severely diminished breath sounds especially at bases, no wheezes, rales, or rhonchi. ABDOMEN: Morbidly obese, positive bowel sounds, soft, nontender. EXTREMITIES: 1+ edema of feet and hands with interval improvement and ongoing presence of wrinkles present throughout. MUSCULOSKELETAL: Moves upper extremities without difficulty. DERMATOLOGIC: Pale, but with interval improvement in color since yesterday when more ashen. PSYCHIATRIC: Alert, answers questions appropriately. - Problem List Review Problem List Initiated/Reviewed/Updated: Yes - My Orders Last 24 Hours: My Active Orders 01/29/18 17:16 Pharmacy Consult [Consult to Pharmacy] [CONS] Routine 01/29/18 Dinner Mechanical Soft Diet [DIET] 01/30/18 11:30 Bumetanide [Bumex] 1 mg IVPUSH BID 01/30/18 18:00 Warfarin [Coumadin] 5 mg PO DAILY@1800 - Plan Plan:: HPI summary: 67yoF with history of chronic hypoxia and hypercapnea due to likely obesity hypoventilation syndrome and possible COPD, recent hospitalization for new-onset acute decompensated heart failure and pulmonary emboli, other recent hospitalization for pneumonia, chronic lymphedema, and 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 She was discharged to long-term facility, where she was turned onto her left side and had decreased oxygen saturations. ED course: She was sent to the ED via EMS and upon arrival, she was on 10L of O2 with SaO2 of 83%. She was placed on a NRB @15L and transitioned to BiPAP. ABG 7.37/80/39. BNP 1030. Chest XR showed small pleural bilateral effusions and moderate pulmonary vascular congestion. Pertinent past diagnostics: - 12/26/17 Chest CTA: No PE, RML pneumonia, cardiomegaly, atelectasis, ground glass changes with air trapping, bilateral hilar region lymphadenopathy. - 12/26/17 EKG: Sinus rhythm with marked sinus arrhythmia. - 12/29/17 Chest XR : Mild cardiomegaly with minor vascular prominence without fany evidence of CHF. - 12/30/17 Video swallow study: Persistent flash penetration with thin consistencies which worsens with use of straws; Speech therapy recommended soft dysphagia diet and thin liquids without straws. - 01/21/18 Chest XR: Acute infiltrates resolved, heart size normal, no pulmonary edema. - 01/24/18 Chest CTA: Moderate pleural effusions R>L, moderate pulmonary emboli L >R, R hilar fullness, and groundglass pulmonary parenchymal opacities Hospital course: During the first night, the patient was on BiPAP with significant improvement in overall mentation, decreased CO2 and greatly improved respiratory status. BiPAP was discontinued the morning of 01/28/18. On the morning of 01/29/18, she had recurrence of significant lethargy, tachypnea, and worsening hypoxia. ABG was ordered, but unable to be obtained, so BiPAP started with subsequent improvement in patient status. Had an extensive conversation with the patient's daughter, Yanelis, at bedside and with her DPOA- healthcare, Adrian, over the phone about her status. They all reiterated the patient's wishes to be a DNR/DNI and focus on comfort. They each stated that the entire family was in agreement that she would not wish to be transferred for any further diagnostic testing or therapeutic care. They were willing to continue with BiPAP and monitor progress. Hospitalization problems: # Acute on chronic hypoxic and hypercapneic respiratory failure: On baseline 3lpm via [facility] prior to current hospitalization. # Acute decompensated heart failure: Onset in the last week with elevated BNP, cardiomegaly, pleural effusions, and pulmonary vascular congestion. No prior echocardiogram. Improved edema and pleural effusions since last admission. # Pulmonary emboli: Dx by CT chest 01/24/18. # Morbid obesity: BMI 41. # Obesity hypoventilation syndrome, likely # COPD, possible: Hospitalized for documented COPD exacerbation in mid-December 2017. No prior PFTs or smoking history. # Chronic lymphedema # Mildly elevated TSH # Protein calorie malnutrition Current respiratory compromise likely multifactorial from chronic obesity hypoventilation syndrome and possible underlying COPD as well as acute decompensated heart failure and pulmonary emboli. No obvious current element of COPD exacerbation or infectious etiology. She has had waxing and waning of respiratory status, with current status much improved on BiPAP, and likely contribution of CO2 retention as a culprit of clinical status changes. She has had some ongoing net fluid loss with IV diuresis and clinically appears to be close to her dry weight. EKG with ST-segment changes, though normal troponin, for which etiology is likely ACS vs. strain related to pulmonary emboli and other respiratory issues. Despite no local capabilities to obtain echocardiogram or other diagnostic studies, family declines consideration of transfer, and wishes to proceed with current management with consideration for discharge on hospice pending evaluation as soon as tomorrow. - Trial high flow nasal cannula during the day and BiPAP at night with titration of oxygen as able - Continue Pulmicort and DuoNebs prn - Bumetanide 1mg BID and KCl 10mEq daily with ongoing monitoring of I/O and daily weight - Continue enoxaparin at therapeutic dosing for bridging with warfarin per pharmacy - Continue telemetry - BMP and INR tomorrow Chronic, stable conditions: # Seizure disorder: Continue Primidone. # Hyperlipidemia # Osteopenia # Cervical spinal stenosis: Continue Tylenol prn. # Glaucoma, open angle: Continue eye drops. Hospitalization details: # FEN: No IVF. Electrolytes with mild hypochloremia and elevated CO2. Soft dysphagia diet, if tolerated, and thin liquids without straws; changed 01/29/18 based on review of prior speech therapy recommendations. # PPX: Therapeutic enoxaparin for pulmonary emboli. PPI. # Code status: DNR/DNI. # [facility], who was updated over phone. # Disposition: Continue on telemetry. Consideration of discharge to SNF on hospice pending evaluation as soon as tomorrow.
[2018-01-30] MEDS: Bumetanide 1 MG/4 ML MDV IVPUSH SCH ×2 (12:01→20:58)
[2018-01-30] MEDS ORDERED: Warfarin 5 MG Tab PO SCH (18:00)
[2018-01-30] MEDS: LATANOPROST 0.005% EYELF SCH (20:54)
[2018-01-30] MEDS: ARTIFICIAL TEARS EYERT SCH (20:55)
[2018-01-31] MEDS: Primidone 50 MG Tab PO SCH ×2 (06:19→11:15)
[2018-01-31] MEDS ORDERED: Omeprazole 20 MG Cap.CR PO SCH (07:00)
[2018-01-31 08:10] LABS: CHLORIDE,CL 94 mmol/L (98-115); SODIUM,NA 141 mmol/L (136-145)
[2018-01-31] MEDS ORDERED: Morphine 2 MG/ML Syringe IVPUSH PRN (09:40)
[2018-01-31] MEDS ORDERED: Fluticasone Propionate Nasal Spray 16 GM Bottle NASBOTH PRN (10:33)
[2018-01-31] MEDS ORDERED: Bumetanide 1 MG Tab PO SCH (11:00)
[2018-01-31] MEDS: Potassium Chloride 10 MEQ Tab.ER PO SCH (11:12)
[2018-01-31] MEDS: Enoxaparin 150 MG/1 ML Syringe SUBCUT SCH (11:12)
[2018-01-31] MEDS: TIMOLOL MALEATE 0.5% EYELF SCH (11:13)
[2018-01-31] MEDS: SYSTANE EYE EYEBOTH SCH (11:14)
[2018-01-31] MEDS: DORZOLAMIDE 2% EYELF SCH (11:14)
[2018-01-31] MEDS: Fluticasone Propionate Nasal Spray 16 GM Bottle NASBOTH SCH (11:29)
[2018-01-31] MEDS: Bumetanide 1 MG/4 ML MDV IVPUSH SCH (11:29)
--- NOTE | 2018-01-31 12:22 | PCM.PN ---
- General Info Date of Service: 01/31/18 - Patient Data Vitals - Most Recent: Last Vital Signs Temp 36.2 C 01/31/18 11:00 Pulse 89 01/31/18 11:00 Resp 21 H 01/31/18 11:00 BP 91/28 L 01/31/18 11:00 Pulse Ox 88 L 01/31/18 11:00 Weight - Most Recent: 96.524 kg I&O - Last 24 Hours: Intake & Output 01/30/18 01/31/18 01/31/18 22:59 06:59 14:59 Intake Total 0 20 Output Total 100 75 Balance -100 -55 Lab Results Last 24 Hours: Laboratory Results - last 24 hr 01/31/18 01/31/18 Range/Units 07:35 07:35 PT 20.5 H (8.9-11.4) SEC INR 2.1 H (0.9-1.1) Sodium 141 (136-145) mmol/L Potassium 4.6 (3.3-5.3) mmol/L Chloride 94 L (98-115) mmol/L Carbon Dioxide 47.4 H (21.0-32.0) mmol/L BUN 34 H (6-25) mg/dL Creatinine 0.59 (0.51-1.17) mg/dL Est Cr Clr Drug Dosing 67.37 mL/min Estimated GFR (MDRD) > 60 mL/min Glucose 120 H (70-110) mg/dL Calcium 8.5 L (8.7-10.3) mg/dL Med Orders - Current: Current Medications Acetaminophen (Tylenol Extra Strength) 1,000 mg PO Q6HR PRN PRN Reason: mild-moderate Pain Al Hydroxide/Mg Hydroxide (Mag-Al Plus) 30 ml PO Q4H PRN PRN Reason: INDIGESTION Albuterol/Ipratropium (Duoneb 3.0-0.5 Mg/3 Ml) 3 ml INH Q4HR PRN PRN Reason: Shortness of Breath Last Admin: 01/29/18 07:49 Dose: 3 ml Atropine Sulfate (Atropine 0.1 Mg/Ml) 0 mg IVPUSH ASDIRECTED PRN PRN Reason: Heart Bumetanide (Bumex) 1 mg PO BIDDIURETIC IVETH Last Admin: 01/31/18 11:15 Dose: Not Given Enoxaparin Sodium (Lovenox) 140 mg SUBCUT DAILY [facility] Last Admin: 01/31/18 11:12 Dose: 140 mg Epinephrine HCl (Epinephrine 1:10,000) 1 mg IVPUSH ASDIRECTED PRN PRN Reason: Heart Fluticasone Propionate (Flonase) 1 gm NASBOTH DAILY PRN PRN Reason: Congestion Guaifenesin (Robitussin) 200 mg PO Q4HR PRN PRN Reason: Cough Lidocaine HCl (Xylocaine 2%) 0 mg IVPUSH ASDIRECTED PRN PRN Reason: Heart Loperamide HCl (Imodium) 2 mg PO ASDIRECTED PRN PRN Reason: Diarrhea Magnesium Hydroxide (Milk Of Magnesia) 30 ml PO DAILY PRN PRN Reason: Constipation Morphine Sulfate (Morphine) 1 mg IVPUSH Q1H PRN PRN Reason: Shortness of Breath or pain Nitroglycerin (Nitrostat) 0.4 mg SL ASDIRECTED PRN PRN Reason: Heart Omeprazole (Omeprazole) 20 mg PO DAILY@0700 [facility] Last Admin: 01/31/18 06:19 Dose: 20 mg Ptom Systane (Liquid Gel Eye Drops) 0 each EYEBOTH BID [facility] Last Admin: 01/31/18 11:14 Dose: 1 each Ptom Artificial (Tears Ophth Ointment) 0 each EYERT BEDTIME [facility] Last Admin: 01/30/18 20:55 Dose: 1 each Ptom Timolol Maleate 0.5% Ophth Soln 5 Ml 0 each EYELF BID [facility] Last Admin: 01/31/18 11:13 Dose: 1 each Ptom Latanoprost 0.005% Ophth Soln 2 .5 Ml 0 each EYELF BEDTIME [facility] Last Admin: 01/30/18 20:54 Dose: 1 each Ptom Dorzolamide (2% Ophth Soln) 0 each EYELF BID [facility] Last Admin: 01/31/18 11:14 Dose: 1 each Potassium Chloride (Klor-Con 10) 10 meq PO DAILY [facility] Last Admin: 01/31/18 11:12 Dose: Not Given Primidone (Mysoline) 250 mg PO TID@0700,1100,1700 [facility] Last Admin: 01/31/18 11:15 Dose: Not Given Sodium Chloride (Syrex Flush) 5 ml FLUSH Q8HR PRN PRN Reason: Keep Vein Open Last Admin: 01/30/18 08:35 Dose: 5 ml Warfarin Sodium (Pharmacy To Dose - Warfarin) 1 dose .XX ASDIRECTED [facility] Warfarin Sodium 5 mg/ Warfarin (Sodium 2 mg) 7 mg PO DAILY@1800 [facility] Discontinued Medications Albuterol/Ipratropium (Duoneb 3.0-0.5 Mg/3 Ml) 3 ml INH TIDRT [facility] Last Admin: 01/29/18 06:14 Dose: 3 ml Artificial Tears (Artificial Tears Ointment) 0 gm EYERT BEDTIME [facility] Last Admin: 01/28/18 00:07 Dose: Not Given Budesonide (Pulmicort) 0.5 mg INH BID@0600,1900 [facility] Last Admin: 01/30/18 18:32 Dose: 0.5 mg Bumetanide (Bumex) 1 mg IVPUSH ONETIME ONE Stop: 01/29/18 18:01 Last Admin: 01/29/18 17:34 Dose: 1 mg Bumetanide (Bumex) 1 mg IVPUSH BID [facility] Last Admin: 01/31/18 11:29 Dose: Not Given Dorzolamide HCl (Trusopt 2% Oph Soln) 0 ml EYELF BID [facility] Last Admin: 01/28/18 00:07 Dose: Not Given Enoxaparin Sodium (Lovenox) 95 mg SUBCUT ONETIME ONE Stop: 01/27/18 21:01 Last Admin: 01/27/18 20:20 Dose: 95 mg Fluticasone Propionate (Flonase) 0 gm NASBOTH DAILY [facility] Last Admin: 01/31/18 11:29 Dose: Not Given Furosemide (Lasix) 40 mg IVPUSH NOW ONE Stop: 01/27/18 13:17 Last Admin: 01/27/18 16:26 Dose: 40 mg Furosemide (Lasix) 40 mg PO BID [facility] Last Admin: 01/29/18 11:56 Dose: Not Given Furosemide (Lasix) 40 mg IVPUSH NOW ONE Stop: 01/29/18 09:20 Last Admin: 01/29/18 09:26 Dose: 40 mg Furosemide (Lasix) Confirm Administered Dose 40 mg .ROUTE .STK-MED ONE Stop: 01/29/18 09:21 Last Admin: 01/29/18 09:26 Dose: Not Given Latanoprost (Xalatan 0.005% Ophth Soln) 0 ml EYELF BEDTIME [facility] Last Admin: 01/28/18 00:07 Dose: Not Given Pantoprazole Sodium (Protonix Iv) 40 mg IVPUSH DAILY [facility] Last Admin: 01/30/18 08:33 Dose: 40 mg Ptom Artificial (Tears Ophth Ointment) 0 each EYERT BEDTIME [facility] Ptom Timolol Maleate 0.5% Ophth Soln 5 Ml 0 each EYELF BID [facility] Primidone (Mysoline) 250 mg PO TID@0700,1100,1700 [facility] Last Admin: 01/28/18 10:54 Dose: 250 mg Timolol Maleate (Timoptic 0.5% Ophth Soln) 0 ml EYELF BID [facility] Last Admin: 01/28/18 00:07 Dose: Not Given Warfarin Sodium (Coumadin) 7.5 mg PO DAILY@1800 [facility] Last Admin: 01/27/18 18:28 Dose: 7.5 mg Warfarin Sodium (Coumadin) 3 mg PO DAILY@1800 [facility] Last Admin: 01/28/18 17:33 Dose: 3 mg Warfarin Sodium (Coumadin) 5 mg PO DAILY@1800 [facility] Last Admin: 01/29/18 17:28 Dose: 5 mg Warfarin Sodium (Coumadin) 2.5 mg PO ONETIME ONE Stop: 01/29/18 19:46 Last Admin: 01/29/18 20:25 Dose: 2.5 mg Warfarin Sodium (Coumadin) 5 mg PO DAILY@1800 [facility] Stop: 01/30/18 18:01 Last Admin: 01/30/18 17:30 Dose: 5 mg - My Orders Last 24 Hours: My Active Orders 01/30/18 15:58 Activity as Tolerated [RC] DAILY 01/31/18 07:00 Omeprazole 20 mg PO DAILY@0700 01/31/18 09:40 Morphine 1 mg IVPUSH Q1H PRN 01/31/18 10:33 Fluticasone Propionate [Flonase] 1 gm NASBOTH DAILY PRN 01/31/18 11:00 Bumetanide [Bumex] 1 mg PO BIDDIURETIC 01/31/18 18:00 Warfarin [Coumadin] 7 mg PO DAILY@1800 05/23/18 06:00 INR,PT,PROTHROMBIN TIME [COAG] Routine - Plan Plan:: HPI summary: 67yoF with history of chronic hypoxia and hypercapnea due to likely obesity hypoventilation syndrome and possible COPD, recent hospitalization for new-onset acute decompensated heart failure and pulmonary emboli, other recent hospitalization for pneumonia, chronic lymphedema, and intellectual disability in intermediate 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 She was discharged to halfway facility, where she was turned onto her left side and had decreased oxygen saturations. ED course: She was sent to the ED via EMS and upon arrival, she was on 10L of O2 with SaO2 of 83%. She was placed on a NRB @15L and transitioned to BiPAP. ABG 7.37/80/39. BNP 1030. Chest XR showed small pleural bilateral effusions and moderate pulmonary vascular congestion. Pertinent past diagnostics: - 12/26/17 Chest CTA: No PE, RML pneumonia, cardiomegaly, atelectasis, ground glass changes with air trapping, bilateral hilar region lymphadenopathy. - 12/26/17 EKG: Sinus rhythm with marked sinus arrhythmia. - 12/29/17 Chest XR : Mild cardiomegaly with minor vascular prominence without fany evidence of CHF. - 12/30/17 Video swallow study: Persistent flash penetration with thin consistencies which worsens with use of straws; Speech therapy recommended soft dysphagia diet and thin liquids without straws. - 01/21/18 Chest XR: Acute infiltrates resolved, heart size normal, no pulmonary edema. - 01/24/18 Chest CTA: Moderate pleural effusions R>L, moderate pulmonary emboli L >R, R hilar fullness, and groundglass pulmonary parenchymal opacities Hospital course: During the first night, the patient was on BiPAP with significant improvement in overall mentation, decreased CO2 and greatly improved respiratory status. BiPAP was discontinued the morning of 01/28/18. On the morning of 01/29/18, she had recurrence of significant lethargy, tachypnea, and worsening hypoxia. ABG was ordered, but unable to be obtained, so BiPAP started with subsequent improvement in patient status. Had an extensive conversation with the patient's daughter, Yanelis, at bedside and with her DPOA- healthcare, Adrian, over the phone about her status. They all reiterated the patient's wishes to be a DNR/DNI and focus on comfort. They each stated that the entire family was in agreement that she would not wish to be transferred for any further diagnostic testing or therapeutic care. They were willing to continue with BiPAP and monitor progress. Hospitalization problems: # Acute on chronic hypoxic and hypercapneic respiratory failure: On baseline 3lpm via [facility] prior to current hospitalization. # Acute decompensated heart failure: Onset in the last week with elevated BNP, cardiomegaly, pleural effusions, and pulmonary vascular congestion. No prior echocardiogram. Improved edema and pleural effusions since last admission. # Pulmonary emboli: Dx by CT chest 01/24/18. # Morbid obesity: BMI 41. # Obesity hypoventilation syndrome, likely # COPD, possible: Hospitalized for documented COPD exacerbation in mid-December 2017. No prior PFTs or smoking history. # Chronic lymphedema # Mildly elevated TSH # Protein calorie malnutrition Current respiratory compromise likely multifactorial from chronic obesity hypoventilation syndrome and possible underlying COPD as well as acute decompensated heart failure and pulmonary emboli. No obvious current element of COPD exacerbation or infectious etiology. She has had waxing and waning of respiratory status, with current status much improved on BiPAP, and likely contribution of CO2 retention as a culprit of clinical status changes. She has had some ongoing net fluid loss with IV diuresis and clinically appears to be close to her dry weight. EKG with ST-segment changes, though normal troponin, for which etiology is likely ACS vs. strain related to pulmonary emboli and other respiratory issues. Despite no local capabilities to obtain echocardiogram or other diagnostic studies, family declines consideration of transfer, and wishes to proceed with current management with consideration for discharge on hospice pending evaluation as soon as tomorrow. - Trial high flow nasal cannula during the day and BiPAP at night with titration of oxygen as able - Continue Pulmicort and DuoNebs prn - Bumetanide 1mg BID and KCl 10mEq daily with ongoing monitoring of I/O and daily weight - Continue enoxaparin at therapeutic dosing for bridging with warfarin per pharmacy - Continue telemetry - BMP and INR tomorrow Chronic, stable conditions: # Seizure disorder: Continue Primidone. # Hyperlipidemia # Osteopenia # Cervical spinal stenosis: Continue Tylenol prn. # Glaucoma, open angle: Continue eye drops. Hospitalization details: # FEN: No IVF. Electrolytes with mild hypochloremia and elevated CO2. Soft dysphagia diet, if tolerated, and thin liquids without straws; changed 01/29/18 based on review of prior speech therapy recommendations. # PPX: Therapeutic enoxaparin for pulmonary emboli. PPI. # Code status: DNR/DNI. # [facility] who was updated over phone. # Disposition: Continue on telemetry. Consideration of discharge to SNF on hospice pending evaluation as soon as tomorrow.
--- NOTE | 2018-01-31 16:32 | PCM.DCSUM1 ---
Discharge Summary - Discharge Data Discharge Date: 01/31/18 Discharge Disposition: 20 Condition: - Patient Summary/Data Consults: Consultations 01/29/18 17:16 Pharmacy Consult [Consult to Pharmacy] [CONS] Routine - Discharge Plan Home Medications: Home Meds Acetaminophen [Tylenol Extra Strength] 1,000 mg PO Q6HR PRN 01/21/18 [History] Albuterol/Ipratropium [DuoNeb 3.0-0.5 MG/3 ML] 3 ml INH Q4HR PRN 01/21/18 [ History] Albuterol/Ipratropium [DuoNeb 3.0-0.5 MG/3 ML] 3 ml INH TID 01/21/18 [History] Budesonide [Pulmicort] 0.5 mg INH BID@0600,1900 01/21/18 [History] Calcium Carbonate [Calcium] 500 mg PO TH@1100,1700 01/21/18 [History] Calcium Carbonate/Vitamin D3 [Calcium 600-Vit D3 400 Tablet] 1 tab PO BID [History] Cholecalciferol (Vitamin D3) [Vitamin D3] 1,000 units PO DAILY 01/21/18 [History ] Dorzolamide [Trusopt 2% Ophth Soln] 1 drop EYELF BID 01/21/18 [History] Furosemide [Lasix] 40 mg PO BID 01/21/18 [History] Latanoprost [Xalatan 0.005% Ophth Soln] 1 drop EYELF BEDTIME 01/21/18 [History] Loperamide [Imodium] 2 mg PO ASDIRECTED PRN 01/21/18 [History] Mag Hydrox/Al Hydrox/Simeth [Mi Acid Suspension] 30 ml PO Q4HR PRN 01/21/18 [ History] Magnesium Hydroxide [Milk of Magnesia] 30 ml PO DAILY PRN 01/21/18 [History] Mineral Oil/Petrolatum,White [Lubrifresh Pm Eye Ointment] 1 applic EYERT BEDTIME 01/21/18 [History] Mometasone Furoate [Nasonex] 2 spray NASBOTH DAILY 01/21/18 [History] Potassium Chloride [Klor-Con 10] 10 meq PO DAILY 01/21/18 [History] Primidone 250 mg PO TID@0700,1100,1700 05/11/18 [History] Propylene Glycol/Peg 400 [Systane Liquid Gel Eye Drops] 1 drop EYEBOTH BID 01/21 [History] Simvastatin [Zocor] 10 mg PO BEDTIME 01/21/18 [History] Timolol Maleate [Timoptic 0.5% Ophth Soln] 1 drop EYELF BID 01/21/18 [History] guaiFENesin 10 ml PO Q4HR PRN 01/21/18 [History] Enoxaparin Sodium [Lovenox] 140 mg SQ DAILY #4 ml 01/27/18 [Rx] Warfarin Sodium [Coumadin] 7.5 mg PO DAILY #5 tablet 01/27/18 [Rx] Forms: ED Department Discharge Referrals: Prabha Tovar MD [Primary Care Provider] - - Patient Data Vitals - Most Recent: Last Vital Signs Temp 36.2 C 01/31/18 11:00 Pulse 89 01/31/18 11:00 Resp 21 H 01/31/18 12:18 BP 79/32 L 01/31/18 12:18 Pulse Ox 90 L 01/31/18 12:18 Weight - Most Recent: 95.453 kg I&O - Last 24 hours: Intake & Output 01/31/18 01/31/18 01/31/18 06:59 14:59 22:59 Intake Total 20 Output Total 75 Balance -55 Lab Results - Last 24 hrs: Laboratory Results - last 24 hr 01/31/18 01/31/18 Range/Units 07:35 07:35 PT 20.5 H (8.9-11.4) SEC INR 2.1 H (0.9-1.1) Sodium 141 (136-145) mmol/L Potassium 4.6 (3.3-5.3) mmol/L Chloride 94 L (98-115) mmol/L Carbon Dioxide 47.4 H (21.0-32.0) mmol/L BUN 34 H (6-25) mg/dL Creatinine 0.59 (0.51-1.17) mg/dL Est Cr Clr Drug Dosing 67.37 mL/min Estimated GFR (MDRD) > 60 mL/min Glucose 120 H (70-110) mg/dL Calcium 8.5 L (8.7-10.3) mg/dL Med Orders - Current: Current Medications Discontinued Medications Acetaminophen (Tylenol Extra Strength) 1,000 mg PO Q6HR PRN PRN Reason: mild-moderate Pain Al Hydroxide/Mg Hydroxide (Mag-Al Plus) 30 ml PO Q4H PRN PRN Reason: INDIGESTION Albuterol/Ipratropium (Duoneb 3.0-0.5 Mg/3 Ml) 3 ml INH Q4HR PRN PRN Reason: Shortness of Breath Last Admin: 01/29/18 07:49 Dose: 3 ml Albuterol/Ipratropium (Duoneb 3.0-0.5 Mg/3 Ml) 3 ml INH TIDRT [facility] Last Admin: 01/29/18 06:14 Dose: 3 ml Artificial Tears (Artificial Tears Ointment) 0 gm EYERT BEDTIME [facility] Last Admin: 01/28/18 00:07 Dose: Not Given Atropine Sulfate (Atropine 0.1 Mg/Ml) 0 mg IVPUSH ASDIRECTED PRN PRN Reason: Heart Budesonide (Pulmicort) 0.5 mg INH BID@0600,1900 [facility] Last Admin: 01/30/18 18:32 Dose: 0.5 mg Bumetanide (Bumex) 1 mg IVPUSH ONETIME ONE Stop: 01/29/18 18:01 Last Admin: 01/29/18 17:34 Dose: 1 mg Bumetanide (Bumex) 1 mg IVPUSH BID [facility] Last Admin: 01/31/18 11:29 Dose: Not Given Bumetanide (Bumex) 1 mg PO BIDDIURETIC [facility] Last Admin: 01/31/18 11:15 Dose: Not Given Dorzolamide HCl (Trusopt 2% Ophth Soln) 0 ml EYELF BID [facility] Last Admin: 01/28/18 00:07 Dose: Not Given Enoxaparin Sodium (Lovenox) 140 mg SUBCUT DAILY [facility] Last Admin: 01/31/18 11:12 Dose: 140 mg Enoxaparin Sodium (Lovenox) 95 mg SUBCUT ONETIME ONE Stop: 01/27/18 21:01 Last Admin: 01/27/18 20:20 Dose: 95 mg Epinephrine HCl (Epinephrine 1:10,000) 1 mg IVPUSH ASDIRECTED PRN PRN Reason: Heart Fluticasone Propionate (Flonase) 0 gm NASBOTH DAILY [facility] Last Admin: 01/31/18 11:29 Dose: Not Given Fluticasone Propionate (Flonase) 1 gm NASBOTH DAILY PRN PRN Reason: Congestion Furosemide (Lasix) 40 mg IVPUSH NOW ONE Stop: 01/27/18 13:17 Last Admin: 01/27/18 16:26 Dose: 40 mg Furosemide (Lasix) 40 mg PO BID [facility] Last Admin: 01/29/18 11:56 Dose: Not Given Furosemide (Lasix) 40 mg IVPUSH NOW ONE Stop: 01/29/18 09:20 Last Admin: 01/29/18 09:26 Dose: 40 mg Furosemide (Lasix) Confirm Administered Dose [address]-MED ONE Stop: 01/29/18 09:21 Last Admin: 01/29/18 09:26 Dose: Not Given Guaifenesin (Robitussin) 200 mg PO Q4HR PRN PRN Reason: Cough Latanoprost (Xalatan 0.005% Ophth Soln) 0 ml EYELF BEDTIME [facility] Last Admin: 01/28/18 00:07 Dose: Not Given Lidocaine HCl (Xylocaine 2%) 0 mg IVPUSH ASDIRECTED PRN PRN Reason: Heart Loperamide HCl (Imodium) 2 mg PO ASDIRECTED PRN PRN Reason: Diarrhea Magnesium Hydroxide (Milk Of Magnesia) 30 ml PO DAILY PRN PRN Reason: Constipation Morphine Sulfate (Morphine) 1 mg IVPUSH Q1H PRN PRN Reason: Shortness of Breath or pain Nitroglycerin (Nitrostat) 0.4 mg SL ASDIRECTED PRN PRN Reason: Heart Omeprazole (Omeprazole) 20 mg PO DAILY@0700 [facility] Last Admin: 01/31/18 06:19 Dose: 20 mg Pantoprazole Sodium (Protonix Iv) 40 mg IVPUSH DAILY [facility] Last Admin: 01/30/18 08:33 Dose: 40 mg Ptom Systane (Liquid Gel Eye Drops) 0 each EYEBOTH BID [facility] Last Admin: 01/31/18 11:14 Dose: 1 each Ptom Artificial (Tears Ophth Ointment) 0 each EYERT BEDTIME [facility] Ptom Artificial (Tears Ophth Ointment) 0 each EYERT BEDTIME [facility] Last Admin: 01/30/18 20:55 Dose: 1 each Ptom Timolol Maleate 0.5% Ophth Soln 5 Ml 0 each EYELF BID [facility] Ptom Timolol Maleate 0.5% Ophth Soln 5 Ml 0 each EYELF BID [facility] Last Admin: 01/31/18 11:13 Dose: 1 each Ptom Latanoprost 0.005% Ophth Soln 2 .5 Ml 0 each EYELF BEDTIME [facility] Last Admin: 01/30/18 20:54 Dose: 1 each Ptom Dorzolamide (2% Ophth Soln) 0 each EYELF BID [facility] Last Admin: 01/31/18 11:14 Dose: 1 each Potassium Chloride (Klor-Con 10) 10 meq PO DAILY [facility] Last Admin: 01/31/18 11:12 Dose: Not Given Primidone (Mysoline) 250 mg PO TID@0700,1100,1700 [facility] Last Admin: 01/28/18 10:54 Dose: 250 mg Primidone (Mysoline) 250 mg PO TID@0700,1100,1700 [facility] Last Admin: 01/31/18 11:15 Dose: Not Given Sodium Chloride (Syrex Flush) 5 ml FLUSH Q8HR PRN PRN Reason: Keep Vein Open Last Admin: 01/30/18 08:35 Dose: 5 ml Timolol Maleate (Timoptic 0.5% Ophth Soln) 0 ml EYELF BID [facility] Last Admin: 01/28/18 00:07 Dose: Not Given Warfarin Sodium (Coumadin) 7.5 mg PO DAILY@1800 [facility] Last Admin: 01/27/18 18:28 Dose: 7.5 mg Warfarin Sodium (Coumadin) 3 mg PO DAILY@1800 [facility] Last Admin: 01/28/18 17:33 Dose: 3 mg Warfarin Sodium (Coumadin) 5 mg PO DAILY@1800 [facility] Last Admin: 01/29/18 17:28 Dose: 5 mg Warfarin Sodium (Pharmacy To Dose - Warfarin) 1 dose .XX ASDIRECTED [facility] Warfarin Sodium (Coumadin) 2.5 mg PO ONETIME ONE Stop: 01/29/18 19:46 Last Admin: 01/29/18 20:25 Dose: 2.5 mg Warfarin Sodium (Coumadin) 5 mg PO DAILY@1800 [facility] Stop: 01/30/18 18:01 Last Admin: 01/30/18 17:30 Dose: 5 mg Warfarin Sodium 5 mg/ Warfarin (Sodium 2 mg) 7 mg PO DAILY@1800 [facility]
== END 2018-01-31 13:18 | disposition expired | DRG 189 ==
LOC: KA.ED 13:02 → KA.MS 14:55
PROVIDERS: ADMIT Physician Assistant Medical; ATTEND Family Medicine
DX: J96.21 Acute and chronic respiratory failure with hypoxia (principal); R06.03 Acute respiratory distress; I26.99 Other pulmonary embolism without acute cor pulmonale; Z68.41 Body mass index [BMI] 40.0-44.9, adult; E66.2 Morbid (severe) obesity with alveolar hypoventilation; E46 Unspecified protein-calorie malnutrition; J90 Pleural effusion, not elsewhere classified; Z51.5 Encounter for palliative care; Z66 Do not resuscitate; J96.22 Acute and chronic respiratory failure with hypercapnia; I50.9 Heart failure, unspecified; J44.9 Chronic obstructive pulmonary disease, unspecified; K21.9 Gastro-esophageal reflux disease without esophagitis; E03.9 Hypothyroidism, unspecified; G40.909 Epilepsy, unspecified, not intractable, without status epilepticus; F70 Mild intellectual disabilities; E78.5 Hyperlipidemia, unspecified; M85.80 Other specified disorders of bone density and structure, unspecified site; H40.10X0 Unspecified open-angle glaucoma, stage unspecified; M48.02 Spinal stenosis, cervical region; I89.0 Lymphedema, not elsewhere classified; Z79.899 Other long term (current) drug therapy; Z79.01 Long term (current) use of anticoagulants; Z87.01 Personal history of pneumonia (recurrent)
CPT/HCPCS: 36415; 36600; 51702; 71045; 80048; 80053; 82550; 82553; 82803; 83880; 84443; 84484; 85025; 85610; 85730; 93005; 94640; 94660; 99284; 99285; A9270-GY; C9113; J1650; J1940; S0171